=== PATIENT | female | born 1950 | race African-American/Black ===

== ENCOUNTER 2020-01-02 12:56 | Inpatient (IN) | payer MEDICARE, BC ==
[~2020-01-02] VITALS: Ht 167.6 cm; Wt 76.2 kg
--- NOTE | 2020-01-02 13:16 | Emergency Room Report ---
History of Present Illness General Chief Complaint: Multiple Trauma/Fall Source: Patient (Ham Rosa MD) Present Illness HPI Disclaimer: Please note that this report is being documented using [employer] technology. This can lead to erroneous entry secondary to incorrect i nterpretation by the dictating instrument. HPI: 69-year-old female history of brain tumor status post resection 2002 presents for evaluation of falls last night. The patient states she had difficulty with her balance and had 3 separate falls to the floor last night. Does not remember striking her head specifically. She feels that her proprioception is off. Reports some weakness as well. Denies numbness or tingling or unilateral sensory or motor changes. She does not take blood thinners. Denies seizure-like activity. Patient reports midline lower back pain that extends bilaterally out. Denies pain shooting down the legs. 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 No change in sensation. She has been constipated and took laxatives 2 days ago with good results. She believes she may have dehydrated herself. Denies fever, chills, nausea, vomiting. She lives with her adult son. PMH: Non-cancerous brain tumors removed 2002 PSH: Tumor resection brain 2002 Allergies: Penicillin Social Hx: Denies (Ham Rosa MD) Allergies: Coded Allergies: IODINATED CONTRAST MEDIA (Verified Allergy, Severe, 01/02/20) Hives Uncoded Allergies: PENICILLIN (Allergy, Unknown, 01/02/20) COVID-19 Screening Contact w/high risk pt: No Experienced COVID-19 symptoms?: No COVID-19 Testing performed SUBSTATION OPERATOR AUTOMATIC: No (Ham Rosa MD) Patient History Now: No (Ham Rosa MD) Review of Systems All Other Systems: negative except mentioned in HPI (Ham Rosa MD) Physical Exam Vital Signs Date Time Temp Pulse Resp B/P (MAP) Pulse Ox O2 Delivery O2 Flow Rate FiO2 01/02/20 12:52 99.0 76 19 168/85 (112) 98 Room Air General: Awake and alert, no acute distress HEENT: NC/AT. No scalp or face hematomas, lacerations or abrasions. EOMI. PERRLA. Facial expressions are symmetrical. Cardiovascular: RRR. S1 and S2 normal. No murmur appreciated Resp: Normal work of breathing. No cough, wheezing or crackles appreciated Abdomen: Abdomen is soft, nondistended. Nontender Skin: Intact. No abrasions, laceration or rash over the exposed skin MSK: Normal tone and bulk. Moving all extremities. No obvious deformity. Neuro: Awake and alert. Mentating appropriately. Sensation intact over the dermatomes of the lower extremities. No saddle anesthesia. Spine: No step-off, tenderness or deformity in the cervical or thoracic spine. Moderate midline lower lumbar tenderness without palpable deformity. Moderate paraspinal tenderness as well. (Ham Rosa MD) Medical Decision Making Diagnostic Impression: Primary Impression: Fall Additional Impressions: Aortitis Seizure disorder ER Course Is a 69-year-old female presenting for evaluation of multiple falls and feeling off balance. Concern for electrolyte abnormality in the setting of recent laxatives, renal failure, intracranial lesion, back injury. Labs thus far have returned within normal limits. CT head and of the lumbar spine are pending. Will sign out to oncoming provider pending CT results and ultimate disposition. Laboratory Tests Test 01/02/20 14:00 01/02/20 14:40 White Blood Count 6.8 K/UL (4.8-10.8) Red Blood Count 3.24 M/UL (4.20-5.40) L Hemoglobin 11.1 G/DL (12.0-16.0) L Hematocrit 35.0 % (37.0-47.0) L Mean Corpuscular Volume 108 FL (80-99) H Mean Corpuscular Hemoglobin 34.3 PG (27.0-31.0) H Mean Corpuscular Hemoglobin Concent 31.7 G/DL (32.0-36.0) L Red Cell Distribution Width 14.3 % (11.6-14.8) Platelet Count 175 K/UL (150-450) Mean Platelet Volume 6.1 FL (6.5-10.1) L Neutrophils (%) (Auto) 60.9 % (45.0-75.0) Lymphocytes (%) (Auto) 24.0 % (20.0-45.0) Monocytes (%) (Auto) 12.8 % (1.0-10.0) H Eosinophils (%) (Auto) 0.5 % (0.0-3.0) Basophils (%) (Auto) 1.8 % (0.0-2.0) Sodium Level 141 MMOL/L (136-145) Potassium Level 4.0 MMOL/L (3.5-5.1) Chloride Level 105 MMOL/L (98-107) Carbon Dioxide Level 29 MMOL/L (21-32) Anion Gap 8 mmol/L (5-15) Blood Urea Nitrogen 18 mg/dL (7-18) Creatinine 0.8 MG/DL (0.55-1.30) Estimated Glomerular Filtration Rate > 60 mL/min (>60) Glucose Level 88 MG/DL (74-106) Calcium Level 9.5 MG/DL (8.5-10.1) Phosphorus Level 3.6 MG/DL (2.5-4.9) Magnesium Level 1.9 MG/DL (1.8-2.4) Total Bilirubin 0.3 MG/DL (0.2-1.0) Aspartate Amino Transferase (AST) 30 U/L (15-37) Alanine Aminotransferase (ALT) 14 U/L (12-78) Alkaline Phosphatase 56 U/L (46-116) Total Protein 8.0 G/DL (6.4-8.2) Albumin 2.9 G/DL (3.4-5.0) L Globulin 5.1 g/dL Albumin/Globulin Ratio 0.6 (1.0-2.7) L Urine Color Yellow Urine Appearance Slightly cloudy Urine pH 5 (4.5-8.0) Urine Specific [place] 1.020 (1.005-1.035) Urine Protein 1+ (NEGATIVE) H Urine Glucose (UA) Negative (NEGATIVE) Urine Ketones 2+ (NEGATIVE) H Urine Blood Negative (NEGATIVE) Urine Nitrite Negative (NEGATIVE) Urine Bilirubin Negative (NEGATIVE) Urine Urobilinogen 4 MG/DL (0.0-1.0) H Urine Leukocyte Esterase 1+ (NEGATIVE) H Urine RBC 0-2 /HPF (0 - 2) Urine WBC 2-4 /HPF (0 - 2) Urine Squamous Epithelial Cells Few /LPF (NONE/OCC) Urine Bacteria Few /HPF (NONE) (Ham Rosa MD) ER Course Patient was endorsed me by Dr. Rosa. Was noted to have increased lower extremity discomfort and weakness. Has been having increased difficulty with ambulation and more frequent falls. Prior history of brain tumor resection currently taking Depakote as well as Keppra. CT imaging of the abdomen pelvis read by radiology showed possible aortitis see radiology report for full details. Patient was noted to have decreased ability to ambulate compared to her baseline. Labs Test 01/02/20 14:00 01/02/20 14:40 White Blood Count 6.8 K/UL (4.8-10.8) Red Blood Count 3.24 M/UL (4.20-5.40) Hemoglobin 11.1 G/DL (12.0-16.0) Hematocrit 35.0 % (37.0-47.0) Mean Corpuscular Volume 108 FL (80-99) Mean Corpuscular Hemoglobin 34.3 PG (27.0-31.0) Mean Corpuscular Hemoglobin Concent 31.7 G/DL (32.0-36.0) Red Cell Distribution Width 14.3 % (11.6-14.8) Platelet Count 175 K/UL (150-450) Mean Platelet Volume 6.1 FL (6.5-10.1) Neutrophils (%) (Auto) 60.9 % (45.0-75.0) Lymphocytes (%) (Auto) 24.0 % (20.0-45.0) Monocytes (%) (Auto) 12.8 % (1.0-10.0) Eosinophils (%) (Auto) 0.5 % (0.0-3.0) Basophils (%) (Auto) 1.8 % (0.0-2.0) Sodium Level 141 MMOL/L (136-145) Potassium Level 4.0 MMOL/L (3.5-5.1) Chloride Level 105 MMOL/L (98-107) Carbon Dioxide Level 29 MMOL/L (21-32) Anion Gap 8 mmol/L (5-15) Blood Urea Nitrogen 18 mg/dL (7-18) Creatinine 0.8 MG/DL (0.55-1.30) Estimat Glomerular Filtration Rate > 60 mL/min (>60) Glucose Level 88 MG/DL (74-106) Calcium Level 9.5 MG/DL (8.5-10.1) Phosphorus Level 3.6 MG/DL (2.5-4.9) Magnesium Level 1.9 MG/DL (1.8-2.4) Total Bilirubin 0.3 MG/DL (0.2-1.0) Aspartate Amino Transf (AST/SGOT) 30 U/L (15-37) Alanine Aminotransferase (ALT/SGPT) 14 U/L (12-78) Alkaline Phosphatase 56 U/L (46-116) Total Protein 8.0 G/DL (6.4-8.2) Albumin 2.9 G/DL (3.4-5.0) Globulin 5.1 g/dL Albumin/Globulin Ratio 0.6 (1.0-2.7) (Rian Sexton MD) Last Vital Signs Date Time Temp Pulse Resp B/P (MAP) Pulse Ox O2 Delivery O2 Flow Rate FiO2 01/02/20 12:52 99.0 76 19 168/85 (112) 98 Room Air (Ham Rosa MD) Status: unchanged (Rian Sexton MD) Disposition: ADMITTED INPATIENT Condition: Stable Ham Rosa MD Jan 02, 2020 13:15 Rian Sexton MD Jan 02, 2020 14:58
--- NOTE | 2020-01-02 14:35 | Diagnostic Imaging Report ---
EXAM: CT Lumbar Spine Without Intravenous Contrast CLINICAL HISTORY: INJ TECHNIQUE: Axial computed tomography images of the lumbar spine without intravenous contrast. Sagittal and coronal reformatted images were created and reviewed. CTDI is 8.00 mGy and DLP is 223.30 mGy-cm. One or more of the following dose reduction techniques were used: automated exposure control, adjustment of the mA and/or kV according to patient size, use of iterative reconstruction technique. COMPARISON: No relevant prior studies available. FINDINGS: Vertebrae: No evidence of lumbar spine fracture or subluxation. Discs/spinal canal/neural foramina: Moderate degenerative disc space loss at L5-S1. Facet arthrosis, most prominent on the left at L3-L4 and bilaterally at L4-5 and L5-S1. Soft tissues: Unremarkable. Vasculature: Infrarenal IVC filter in place. Hazy para-aortic inflammatory stranding adjacent to the distal abdominal aorta and aortic bifurcation. IMPRESSION: 1. Hazy para-aortic inflammatory stranding adjacent to the distal abdominal aorta and aortic bifurcation. This is nonspecific and is concerning for aortitis or vascular injury. No adjacent fluid collections. 2. No evidence of lumbar spine fracture or subluxation. 3. Moderate degenerative disc space loss at L5-S1. 4. Facet arthrosis, most prominent on the left at L3-L4 and bilaterally at L4-5 and L5-S1. 5. Infrarenal IVC filter in place.
[2020-01-02 14:40] LABS: BASOPHILS % (AUTO) 1.8 % (0.0-2.0); EOSINOPHILS % (AUTO) 0.5 % (0.0-3.0); HEMOGLOBIN 11.1 G/DL (12.0-16.0); MEAN CORPUSCULAR VOLUME 108 FL (80-99); MONOCYTES % (AUTO) 12.8 % (1.0-10.0); NEUTROPHILS % (AUTO) 60.9 % (45.0-75.0); PLATELET COUNT 175 K/UL (150-450); RED BLOOD COUNT 3.24 M/UL (4.20-5.40); RED CELL DISTRIBUTION WIDTH 14.3 % (11.6-14.8); WHITE BLOOD COUNT 6.8 K/UL (4.8-10.8)
--- NOTE | 2020-01-02 14:41 | Diagnostic Imaging Report ---
EXAM: CT Head Without Intravenous Contrast CLINICAL HISTORY: INJ TECHNIQUE: Axial computed tomography images of the head/brain without intravenous contrast. CTDI is 53.40 mGy and DLP is 1045.50 mGy-cm. One or more of the following dose reduction techniques were used: automated exposure control, adjustment of the mA and/or kV according to patient size, use of iterative reconstruction technique. Coronal reformatted images were created and reviewed. COMPARISON: No relevant prior studies available. FINDINGS: Brain: No evidence of acute intracranial hemorrhage. No mass effect or midline shift. Periventricular white matter hypodensities, likely related to chronic small vessel disease changes. Generalized cerebral parenchymal volume loss. Ventricles: Symmetric distention of the lateral and third ventricles, likely compensatory to the cerebral atrophy. Bones/joints: Post surgical changes from bilateral parietal craniotomy. Associated underlying parafalcine and cortical calcifications at the vertex. Soft tissues: Unremarkable. Sinuses: Unremarkable as visualized. Visualized paranasal sinuses are clear. No sinus air-fluid levels. Mastoid air cells: Unremarkable as visualized. No mastoid effusion. IMPRESSION: 1. Post surgical changes from bilateral parietal craniotomy. Associated underlying parafalcine and cortical calcifications at the vertex. 2. No evidence of acute intracranial hemorrhage. No mass effect or midline shift. 3. Periventricular white matter hypodensities, likely related to chronic small vessel disease changes. 4. Generalized cerebral parenchymal volume loss, likely age-related.
[2020-01-02 14:45] VITALS: BP 156/83
[2020-01-02 14:52] LABS: ALANINE AMINOTRANSFERASE 14 U/L (12-78); ALBUMIN 2.9 G/DL (3.4-5.0); ALBUMIN/GLOBULIN RATIO 0.6 (1.0-2.7); ALKALINE PHOSPHATASE 56 U/L (46-116); ANION GAP 8 mmol/L (5-15); ASPARTATE AMINO TRANSFERASE 30 U/L (15-37); BILIRUBIN,TOTAL 0.3 MG/DL (0.2-1.0); BLOOD UREA NITROGEN 18 mg/dL (7-18); CALCIUM 9.5 MG/DL (8.5-10.1); CARBON DIOXIDE 29 MMOL/L (21-32); CHLORIDE 105 MMOL/L (98-107); CREATININE 0.8 MG/DL (0.55-1.30); PHOSPHORUS 3.6 MG/DL (2.5-4.9); SODIUM 141 MMOL/L (136-145)
[2020-01-02 15:05] LABS: APPEARANCE,URINE SLIGHTLY CLOUDY; BILIRUBIN, URINE NEGATIVE (NEGATIVE); GLUCOSE, URINE (UA) NEGATIVE (NEGATIVE); KETONES,URINE 2+ (NEGATIVE); LEUKOCYTE ESTERASE ,URINE 1+ (NEGATIVE); NITRITE,URINE NEGATIVE (NEGATIVE); PH,URINE 5 (4.5-8.0); PROTEIN,URINE 1+ (NEGATIVE); UROBILINOGEN,URINE 4 MG/DL (0.0-1.0)
[2020-01-02] MEDS ORDERED: VITAMIN B-1100 M2 PO (15:36)
[2020-01-02] MEDS ORDERED: ACETAMINOPHEN500 M5 ORAL (15:36)
[2020-01-02] MEDS ORDERED: FOLIC ACID0.4 MG ORAL (15:36)
[2020-01-02] MEDS ORDERED: LEVETIRACETAM1000 MG ORAL (15:36)
[2020-01-02] MEDS ORDERED: AMITIZA8 MCG ORAL (15:36)
[2020-01-02] MEDS ORDERED: DEPAKOTE500 MG PO (15:36)
[2020-01-02 15:46] LABS: COLOR,URINE YELLOW
[2020-01-02 15:47] VITALS: BP 149/70
[2020-01-02] MEDS ORDERED: Miralax 17gm pkt ORAL PRN (18:45)
[2020-01-02] MEDS ORDERED: Zolpidem 5mg tab ORAL PRN (18:45)
[2020-01-02] MEDS: Depakote 500mg tab ORAL SCH (21:11)
[2020-01-03] VITALS (7 sets, daily range): BP systolic 135–159; BP diastolic 66–80
[2020-01-03] MEDS ORDERED: ROBAXIN-500MG ORAL (01:03)
[2020-01-03] MEDS: Methocarbamol 500mg tab ORAL PRN ×3 (06:47→20:50)
[2020-01-03 06:52] LABS: BASOPHILS % (AUTO) 1.8 % (0.0-2.0); EOSINOPHILS % (AUTO) 0.5 % (0.0-3.0); HEMATOCRIT 33.8 % (37.0-47.0); HEMOGLOBIN 10.5 G/DL (12.0-16.0); LYMPHOCYTES % (AUTO) 22.3 % (20.0-45.0); MEAN CORPUSCULAR VOLUME 109 FL (80-99); MONOCYTES % (AUTO) 9.3 % (1.0-10.0); NEUTROPHILS % (AUTO) 66.1 % (45.0-75.0); PLATELET COUNT 173 K/UL (150-450); RED BLOOD COUNT 3.09 M/UL (4.20-5.40); RED CELL DISTRIBUTION WIDTH 14.2 % (11.6-14.8); WHITE BLOOD COUNT 6.2 K/UL (4.8-10.8)
[2020-01-03 07:54] LABS: ALANINE AMINOTRANSFERASE 13 U/L (12-78); ALBUMIN 2.7 G/DL (3.4-5.0); ALBUMIN/GLOBULIN RATIO 0.6 (1.0-2.7); ALKALINE PHOSPHATASE 58 U/L (46-116); ANION GAP 9 mmol/L (5-15); ASPARTATE AMINO TRANSFERASE 23 U/L (15-37); BILIRUBIN,TOTAL 0.2 MG/DL (0.2-1.0); BLOOD UREA NITROGEN 14 mg/dL (7-18); CARBON DIOXIDE 27 MMOL/L (21-32); CHLORIDE 105 MMOL/L (98-107); CHOLESTEROL 136 MG/DL (< 200); CREATININE 0.9 MG/DL (0.55-1.30); HDL CHOLESTEROL 43 MG/DL (40-60); POTASSIUM 3.6 MMOL/L (3.5-5.1); SODIUM 141 MMOL/L (136-145); TRIGLYCERIDES 60 MG/DL (30-150)
[2020-01-03] MEDS: Depakote 500mg tab ORAL SCH ×2 (08:30→20:42)
--- NOTE | 2020-01-03 13:08 | History & Physical ---
History and Physical History & Physicial Hector Magana MD Jan 03, 2020 13:07
--- NOTE | 2020-01-03 14:04 | Consultation ---
History of Present Illness General Date patient seen: Jan 06, 2020 Chief Complaint: Lower Back Pain or Injury Present Illness HPI 69-year-old female with history of brain tumor status post resection 2002 presents for evaluation of falls last night, difficulty with her balance, some weakness as well. Denies numbness or tingling or unilateral sensory or motor changes. Denies seizure-like activity. Patient reports midline lower back pain that extends bilaterally out. 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 No change in sensation. She is admitted for further management. Allergies: Coded Allergies: IODINATED CONTRAST MEDIA (Verified Allergy, Severe, 01/02/20) Hives Uncoded Allergies: PENICILLIN (Allergy, Unknown, 01/02/20) Medication History Scheduled Divalproex Sodium (Depakote), 500 MG PO BID, (Reported) Folic Acid (Folic Acid), 400 MCG ORAL BID, (Reported) Levetiracetam (Levetiracetam), 1,000 MG ORAL TWICE A DAY, (Reported) Lubiprostone (Amitiza), 8 MCG ORAL EVERY 12 HOURS, (Reported) Methocarbamol* (Robaxin-500*), 500 MG ORAL TID, (Reported) Thiamine Mononitrate (Vitamin B-1), 100 MG PO DAILY, (Reported) Scheduled PRN Acetaminophen (Acetaminophen), 500 MG ORAL TID PRN for For Pain, (Reported) Polyethylene Glycol 3350* (Miralax*), 17 GM ORAL DAILY PRN for Constipation, (Reported) Psyllium Husk/Aspartame (Metamucil Powder), 174 GM PO for Constipation, (Reported) Patient History Healthcare decision maker Resuscitation status Advanced Directive on File Past Medical/Surgical History Past Medical/Surgical History: (1) Neuropathy of left lower extremity (2) Brain tumor (3) Seizure disorder Review of Systems All Other Systems: negative except mentioned in HPI Physical Exam General Appearance: WD/WN Lines, tubes and drains: peripheral HEENT: normocephalic, atraumatic Neck: non-tender, normal alignment Respiratory/Chest: chest wall non-tender, lungs clear Breasts: no masses Cardiovascular/Chest: normal peripheral pulses, normal rate Genitourinary/Rectal: normal genital exam, heme negative stool Skin Exam: normal pigmentation 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 Last 24 Hour Vital Signs Date Time Temp Pulse Resp B/P (MAP) Pulse Ox O2 Delivery O2 Flow Rate FiO2 01/03/20 08:00 98.8 73 18 150/70 (96) 98 01/03/20 04:00 98.5 83 18 153/75 (101) 98 01/03/20 00:00 98.1 77 18 159/66 (97) 98 01/02/20 21:00 Room Air 01/02/20 18:06 98.9 70 18 149/70 98 Room Air 01/02/20 15:47 98.9 70 18 149/70 98 Room Air 01/02/20 14:45 99.0 78 19 156/83 98 Room Air Intake and Output 01/02/20 01/03/20 19:00 07:00 Intake Total 500 ml Balance 500 ml Intake Oral 500 ml # Voids 1 3 # Bowel Movements 1 Laboratory Tests Test 01/02/20 14:40 01/03/20 05:23 Urine Color Yellow Urine Appearance Slightly cloudy Urine pH 5 (4.5-8.0) Urine Specific [place] 1.020 (1.005-1.035) Urine Protein 1+ (NEGATIVE) H Urine Glucose (UA) Negative (NEGATIVE) Urine Ketones 2+ (NEGATIVE) H Urine Blood Negative (NEGATIVE) Urine Nitrite Negative (NEGATIVE) Urine Bilirubin Negative (NEGATIVE) Urine Urobilinogen 4 MG/DL (0.0-1.0) H Urine Leukocyte Esterase 1+ (NEGATIVE) H Urine RBC 0-2 /HPF (0 - 2) Urine WBC 2-4 /HPF (0 - 2) Urine Squamous Epithelial Cells Few /LPF (NONE/OCC) Urine Bacteria Few /HPF (NONE) White Blood Count 6.2 K/UL (4.8-10.8) Red Blood Count 3.09 M/UL (4.20-5.40) L Hemoglobin 10.5 G/DL (12.0-16.0) L Hematocrit 33.8 % (37.0-47.0) L Mean Corpuscular Volume 109 FL (80-99) H Mean Corpuscular Hemoglobin 33.9 PG (27.0-31.0) H Mean Corpuscular Hemoglobin Concent 31.0 G/DL (32.0-36.0) L Red Cell Distribution Width 14.2 % (11.6-14.8) Platelet Count 173 K/UL (150-450) Mean Platelet Volume 6.1 FL (6.5-10.1) L Neutrophils (%) (Auto) 66.1 % (45.0-75.0) Lymphocytes (%) (Auto) 22.3 % (20.0-45.0) Monocytes (%) (Auto) 9.3 % (1.0-10.0) Eosinophils (%) (Auto) 0.5 % (0.0-3.0) Basophils (%) (Auto) 1.8 % (0.0-2.0) Sodium Level 141 MMOL/L (136-145) Potassium Level 3.6 MMOL/L (3.5-5.1) Chloride Level 105 MMOL/L (98-107) Carbon Dioxide Level 27 MMOL/L (21-32) Anion Gap 9 mmol/L (5-15) Blood Urea Nitrogen 14 mg/dL (7-18) Creatinine 0.9 MG/DL (0.55-1.30) Estimat Glomerular Filtration Rate > 60 mL/min (>60) Glucose Level 119 MG/DL (74-106) H Calcium Level 9.0 MG/DL (8.5-10.1) Total Bilirubin 0.2 MG/DL (0.2-1.0) Aspartate Amino Transf (AST/SGOT) 23 U/L (15-37) Alanine Aminotransferase (ALT/SGPT) 13 U/L (12-78) Alkaline Phosphatase 58 U/L (46-116) Total Protein 7.5 G/DL (6.4-8.2) Albumin 2.7 G/DL (3.4-5.0) L Globulin 4.8 g/dL Albumin/Globulin Ratio 0.6 (1.0-2.7) L Triglycerides Level 60 MG/DL (30-150) Cholesterol Level 136 MG/DL (< 200) LDL Cholesterol 69 mg/dL (<100) HDL Cholesterol 43 MG/DL (40-60) Cholesterol/HDL Ratio 3.2 (3.3-4.4) L Thyroid Stimulating Hormone (TSH) 2.210 uiU/mL (0.358-3.740) Height (Feet): 5 Height (Inches): 6.00 Weight (Pounds): 168 Medications Current Medications Medications (Trade) Dose Ordered Sig/Stone Route PRN Reason Start Time Stop Time Status Last Admin Dose Admin Acetaminophen (Tylenol) 650 mg Q4H PRN ORAL Temp >100.5 01/02/20 18:45 02/01/20 18:44 Dextrose (Dextrose 50%) 25 ml Q30MIN PRN IV Hypoglycemia 01/02/20 18:45 04/01/20 18:44 Dextrose (Dextrose 50%) 50 ml Q30MIN PRN IV Hypoglycemia 01/02/20 18:45 04/01/20 18:44 Divalproex Sodium (Depakote) 500 mg Q12HR ORAL 01/02/20 21:00 02/01/20 20:59 01/03/20 08:30 Levetiracetam (Keppra) 1,000 mg Q12HR ORAL 01/02/20 21:00 02/01/20 20:59 01/03/20 08:30 Methocarbamol (Robaxin) 500 mg TID PRN ORAL back pain 01/03/20 06:45 02/02/20 06:44 01/03/20 13:48 Ondansetron HCl (Zofran) 4 mg Q6H PRN IVP Nausea & Vomiting 01/02/20 18:45 02/01/20 18:44 Polyethylene Glycol (Miralax) 17 gm HSPRN PRN ORAL Constipation 01/02/20 18:45 02/01/20 18:44 Zolpidem Tartrate (Ambien) 5 mg HSPRN PRN ORAL Insomnia 01/02/20 18:45 01/09/20 18:44 Assessment/Plan Problem List: (1) Frequent falls ICD Codes: R29.6 - Repeated falls SNOMED: 203813010 (2) Neuropathy of left lower extremity ICD Codes: G57.92 - Unspecified mononeuropathy of left lower limb SNOMED: 123595129 (3) Seizure disorder ICD Codes: G40.909 - Epilepsy, unspecified, not intractable, without status epilepticus SNOMED: 911363455 (4) Brain tumor ICD Codes: D49.6 - Neoplasm of unspecified behavior of brain SNOMED: 880800489 Assessment/Plan: fall precaution PT eval and Rx DVT prophylaxis seizure precautions, continue Keppra and Depakote monitor H&H with goal to keep hemoglobin above 7 CT of the head with postsurgical changes ; no evidence of acute ICH, no mass- effect or midline shift; generalized cerebral parenchymal volume loss. likely age-related EEG pending cardio eval ECHO Carotid duplex supportive care Donnell Adams MD Jan 03, 2020 14:03
--- NOTE | 2020-01-03 23:00 | History and Physical Report ---
DATE OF ADMISSION: 01/02/2020 CHIEF COMPLAINT: Unsteady gait, recurrent fall. HISTORY OF PRESENT ILLNESS: This is a 69-year-old very delightful female with past medical history significant for lower back pain as well as benign brain mass, status post resection in 2002. 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 She presented to the emergency department complaining about recurrent fall and unsteady gait. The patient had difficulty with her balance, has been having 3 episodes of fall to the floor last night. The patient does not remember striking her head, specifically she feels that her balance is off. She reports some weakness as well. Denies any numbness or tingling. Denies any double vision. Denies any bowel or urine incontinence. She is not taking any blood thinner. She denies any fever, chills, nausea, vomiting, or diarrhea. She has been keeping herself hydrated and she lives with her adult son. Shortly after initial evaluation in the emergency department, the patient was admitted to the hospital with recurrent falls with unsteady gait. PAST MEDICAL HISTORY: Significant for benign brain tumor called Rosai-Eran, status post resection in 2002. MEDICATIONS AT HOME: Please refer to medication reconciliation. ALLERGIES: Iodine contrast media and penicillin with rash. SOCIAL HISTORY: Denies any smoking, alcohol, or drugs. FAMILY HISTORY: Noncontributory. REVIEW OF SYSTEMS: Mostly as above. Denies any dysuria, frequency, hematuria. Denies any hemoptysis or hematochezia. Denies any bright red blood per rectum. Complained of unsteady gait and lower extremity weakness. Complained about balance problem. PHYSICAL EXAMINATION: VITAL SIGNS: On admission, temperature 99, pulse of 76, respirations 19, blood pressure 168/85. GENERAL: The patient is awake, responsive, no acute distress. HEAD AND NECK: Pupils equal and reactive to light. Extraocular movements intact. Neck was supple. No JVD. LUNGS: Good air entry. No wheezing or rales. HEART: S1, S2. Regular rhythm. No murmur or gallop. ABDOMEN: Soft, nondistended, nontender, positive bowel sounds. EXTREMITIES: No cyanosis, clubbing, or edema. NEUROLOGIC: souvenir assembler II through XII grossly intact. Motor is 5/5 in all extremities. Gait was not assessed due to the patient's status. RECTAL: Refused and deferred. GENITOURINARY: Refused and deferred. LABORATORY DATA: On admission from the emergency department, WBC of 6.8, hemoglobin 11, hematocrit 35 platelet is 175. Sodium 141, potassium 4.0, chloride 105, bicarb 29, BUN 18, creatinine 0.8. Liver function essentially unremarkable. Cholesterol is 136. UA has +1 protein, +2 ketones, 4 urobilinogen, and +1 leukocytes. The patient had a CT scan of the head and spine that showed postsurgical changes from the bilateral parietal craniotomy, associated with underlying parafalcine and cortical calcification at the vertex. No evidence of acute intracranial hemorrhage or mass effect or midline shift. Periventricular white matter hypodensity, likely related to chronic small vessel, generalized cerebral parenchymal volume loss. CT of the lumbar spine shows that she has para-aortic inflammatory stranding adjacent to the distal abdominal aorta and aortic bifurcation disease, nonspecified, concerning of aortitis or vascular injury. No adjacent fluid collection. No evidence of the lumbar spine fracture or subluxation. Moderate degenerative disc space loss at the level of L5 and S1 and facet arthropathy, most prominent on the left at the level of L3-L4 and bilateral L4-L5 and L5-S1, infrarenal IVC filter in place. ASSESSMENT: 1. Unsteady gait with recurrent falls. 2. History of DVT, status post IVC filter. 3. Anemia. 4. History of brain tumor, status post resection. PLAN: Admit the patient to the medical floor. We will follow up laboratory. PT/OT evaluation. Follow up with culture. At this time, we will hold off on antibiotic therapy. Follow up with consultation. Code status is full code. DVT prophylaxis is heparin subcu. Hector Magana M.D. DR: FINN JOB#: [id number] CC:
[2020-01-04 04:00] VITALS: BP 151/73
[2020-01-04 08:00] VITALS: BP 158/81
[2020-01-04] MEDS: HYDROcodone/Acetamin 5/325 tab ORAL PRN (08:36)
[2020-01-04] MEDS: Depakote 500mg tab ORAL SCH ×2 (10:17→20:26)
--- NOTE | 2020-01-04 11:01 | Pulmonology Progress Note ---
Subjective Allergies: Coded Allergies: IODINATED CONTRAST MEDIA (Verified Allergy, Severe, 01/02/20) Hives Uncoded Allergies: PENICILLIN (Allergy, Unknown, 01/02/20) Subjective reports recurrent falls and being unsteady on her feet remains afebrile, no leukocytosis CT head and CT L spine noted Objective Last 24 Hour Vital Signs Date Time Temp Pulse Resp B/P (MAP) Pulse Ox O2 Delivery O2 Flow Rate FiO2 01/04/20 09:00 Room Air 01/04/20 08:00 97.2 73 18 158/81 (106) 100 01/04/20 04:00 97.9 81 18 151/73 (99) 100 01/03/20 23:21 98.8 77 18 152/73 (99) 98 01/03/20 21:00 Room Air 01/03/20 20:00 98.3 79 18 153/66 (95) 97 01/03/20 16:00 98.6 89 17 135/80 (98) 98 01/03/20 12:00 97.9 67 15 142/80 (100) 98 Intake and Output 01/03/20 01/04/20 19:00 07:00 Intake Total 500 ml 300 ml Balance 500 ml 300 ml Intake Oral 300 ml Other 500 ml # Voids 3 General Appearance: WD/WN, no acute distress HEENT: normocephalic, atraumatic, anicteric, mucous membranes moist Respiratory: lungs clear, no respiratory distress, no accessory muscle use Cardiovascular: normal peripheral pulses, normal rate Abdomen: normal bowel sounds, soft, non tender Extremities: no edema Neurologic: abnormal gait - unsteady gait , alert, oriented x 3, responsive Musculoskeletal: normal muscle bulk Current Medications Medications (Trade) Dose Ordered Sig/Stone Route PRN Reason Start Time Stop Time Status Last Admin Dose Admin Acetaminophen (Tylenol) 650 mg Q4H PRN ORAL Temp >100.5 01/02/20 18:45 02/01/20 18:44 Acetaminophen/ Hydrocodone Bitart ([place]ra 5/325) 1 tab Q6H PRN ORAL For Pain 01/03/20 14:15 01/10/20 14:14 01/04/20 08:36 Dextrose (Dextrose 50%) 25 ml Q30MIN PRN IV Hypoglycemia 01/02/20 18:45 04/01/20 18:44 Dextrose (Dextrose 50%) 50 ml Q30MIN PRN IV Hypoglycemia 01/02/20 18:45 04/01/20 18:44 Divalproex Sodium (Depakote) 500 mg Q12HR ORAL 01/02/20 21:00 02/01/20 20:59 01/04/20 10:17 Levetiracetam (Keppra) 1,000 mg Q12HR ORAL 01/02/20 21:00 02/01/20 20:59 01/04/20 10:17 Methocarbamol (Robaxin) 500 mg TID PRN ORAL back pain 01/03/20 06:45 02/02/20 06:44 01/03/20 20:50 Ondansetron HCl (Zofran) 4 mg Q6H PRN IVP Nausea & Vomiting 01/02/20 18:45 02/01/20 18:44 Polyethylene Glycol (Miralax) 17 gm HSPRN PRN ORAL Constipation 01/02/20 18:45 02/01/20 18:44 Zolpidem Tartrate (Ambien) 5 mg HSPRN PRN ORAL Insomnia 01/02/20 18:45 01/09/20 18:44 Assessment/Plan Assessment/Plan ASSESSMENT 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 likely age-related neuro eval pending CT of L spine noted : infrarenal IVC filter in place ; no evidence of lumbar spine fracture or subluxation; moderate degenerative disc disease with facet arthrosis; hazy para-aortic inflammatory stranding concerning for aortitis or vascular injury cardio eval pending monitor HH with goal to keep Hgb > 7 supportive care case discussed and evaluated by supervising physician Caty Dozier NP Jan 04, 2020 11:01
[2020-01-04 12:00] VITALS: BP 152/72
[2020-01-04 16:00] VITALS: BP 134/68
--- NOTE | 2020-01-04 17:05 | Internal Med Progress Note ---
Subjective Date of Service: Jan 04, 2020 Physician Name Marky Quinones Attending Physician Hector Magana MD Current Medications Medications (Trade) Dose Ordered Sig/Stone Route PRN Reason Start Time Stop Time Status Last Admin Dose Admin Acetaminophen (Tylenol) 650 mg Q4H PRN ORAL Temp >100.5 01/02/20 18:45 02/01/20 18:44 Acetaminophen/ Hydrocodone Bitart ([place] 5/325) 1 tab Q6H PRN ORAL For Pain 01/03/20 14:15 01/10/20 14:14 01/04/20 08:36 Dextrose (Dextrose 50%) 25 ml Q30MIN PRN IV Hypoglycemia 01/02/20 18:45 04/01/20 18:44 Dextrose (Dextrose 50%) 50 ml Q30MIN PRN IV Hypoglycemia 01/02/20 18:45 04/01/20 18:44 Divalproex Sodium (Depakote) 500 mg Q12HR ORAL 01/02/20 21:00 02/01/20 20:59 01/04/20 10:17 Levetiracetam (Keppra) 1,000 mg Q12HR ORAL 01/02/20 21:00 02/01/20 20:59 01/04/20 10:17 Methocarbamol (Robaxin) 500 mg TID PRN ORAL back pain 01/03/20 06:45 02/02/20 06:44 01/03/20 20:50 Ondansetron HCl (Zofran) 4 mg Q6H PRN IVP Nausea & Vomiting 01/02/20 18:45 02/01/20 18:44 Polyethylene Glycol (Miralax) 17 gm HSPRN PRN ORAL Constipation 01/02/20 18:45 02/01/20 18:44 Zolpidem Tartrate (Ambien) 5 mg HSPRN PRN ORAL Insomnia 01/02/20 18:45 01/09/20 18:44 Allergies: Coded Allergies: IODINATED CONTRAST MEDIA (Verified Allergy, Severe, 01/02/20) Hives Uncoded Allergies: PENICILLIN (Allergy, Unknown, 01/02/20) ROS Limited/Unobtainable: No Constitutional: Reports: no symptoms HEENT: Reports: no symptoms Cardiovascular: Reports: no symptoms Respiratory: Reports: no symptoms Gastrointestinal/Abdominal: Reports: no symptoms Genitourinary: Reports: no symptoms Neurologic/Psychiatric: Reports: no symptoms Subjective 76 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 Cover for Int med-Dr Hou Objective Last Vital Signs Date Time Temp Pulse Resp B/P (MAP) Pulse Ox O2 Delivery O2 Flow Rate FiO2 01/04/20 16:00 98.6 74 16 134/68 (90) 98 01/04/20 09:00 Room Air Intake and Output 01/03/20 01/04/20 19:00 07:00 Intake Total 500 ml 300 ml Balance 500 ml 300 ml Intake Oral 300 ml Other 500 ml # Voids 3 Objective PHYSICAL EXAMINATION: GENERAL: The patient is awake, responsive, no acute distress. HEAD AND NECK: Pupils equal and reactive to light. Extraocular movements intact. Neck was supple. No JVD. LUNGS: Good air entry. No wheezing or rales. HEART: S1, S2. Regular rhythm. No murmur or gallop. ABDOMEN: Soft, nondistended, nontender, positive bowel sounds. EXTREMITIES: No cyanosis, clubbing, or edema. NEUROLOGIC: picture hanger II through XII grossly intact. Motor is 5/5 in all extremities. Gait was not assessed due to the patient's status. RECTAL: Refused and deferred. GENITOURINARY: Refused and deferred. Assessment/Plan Assessment/Plan ASSESSMENT: 1. Unsteady gait with recurrent falls. 2. History of DVT, status post IVC filter. 3. Anemia. 4. History of brain tumor, status post resection. PLAN: Admit the patient to the medical floor. We will follow up laboratory. PT/OT evaluation. Follow up with culture. At this time, we will hold off on antibiotic therapy. Follow up with Dr. Adams - pulmonary consultation. Code status is full code. DVT prophylaxis is heparin subcu. Await neurology consult-Marky Pimentel MD Jan 04, 2020 17:05
[2020-01-04 20:00] VITALS: BP 143/73
--- NOTE | 2020-01-04 21:36 | Neurology Progress Note ---
Interim History Interim History ROS Limited/Unobtainable: No Interim History 69 year oldfemalewithh/oRosai Eran diseases/p craniotomy and tumor resection in 2002 at [place] w radiation, chemotherapy, seizure disorder, chronic gait instability with falls who presents w worsening gait instability and AMS. Pt has hx of multiple falls, seen by myself at [facility] multiple times due to this. Unclear if she LOC this time. She reports more falling than ever in past 2-3 months, difficulty w balance, approx fell 5-6 times in past few months. Feels like her legs give out even while using FWW, RLE weaker >LLE. Fine resting tremors and bradykinesia noted to BUE. Objective Physical Exam Last Vital Signs Date Time Temp Pulse Resp B/P (MAP) Pulse Ox O2 Delivery O2 Flow Rate FiO2 01/04/20 20:02 Room Air 01/04/20 16:00 98.6 74 16 134/68 (90) 98 Neurologic Exam Mental Status: awake, alert Objective she is confused and tangential bradykinetic but symmetric mild rigidity Impression/Recommendations Problems: (1) Aortitis (2) Seizure disorder (3) Fall (4) Brain tumor Diagnostic Impression Diagnosis Generalized weakness Gait instability Falls frequently Rosai-Eran disease (HCC) Seizure disorder (HCC) 1. Frequent falls since December 2018 with rigidity and tremors - likely parkinsonism. - MRI cervical / T / L wo significant disease - waiting final read - OT/PT 2. history brain tumor status post resection and chemotherapy, radiation therapy 3. Seizure disorder, secondary to above Plan: MRI brain w/wo EEG Cont AEDs for now dr pulliam to follow Sohail Tran MD Jan 04, 2020 21:36
--- NOTE | 2020-01-04 21:44 | Cardiac Electrophysiology PN ---
Subjective Subjective [id number] Objective Last 24 Hour Vital Signs Date Time Temp Pulse Resp B/P (MAP) Pulse Ox O2 Delivery O2 Flow Rate FiO2 01/04/20 20:02 Room Air 01/04/20 16:00 98.6 74 16 134/68 (90) 98 01/04/20 12:00 97.1 82 16 152/72 (98) 100 01/04/20 09:00 Room Air 01/04/20 08:00 97.2 73 18 158/81 (106) 100 01/04/20 04:00 97.9 81 18 151/73 (99) 100 01/03/20 23:21 98.8 77 18 152/73 (99) 98 Intake and Output 01/03/20 01/04/20 19:00 07:00 Intake Total 500 ml 300 ml Balance 500 ml 300 ml Intake Oral 300 ml Other 500 ml # Voids 3 Samson Torrez MD Jan 04, 2020 21:44
[2020-01-04] MEDS ORDERED: METAMUCIL POWD174 GM PO (22:13)
[2020-01-04] MEDS ORDERED: MIRALAX17 G2 ORAL (22:13)
--- NOTE | 2020-01-04 23:00 | Consultation ---
DATE OF CONSULTATION: 01/04/2020 CARDIOLOGY CONSULTATION CONSULTING PHYSICIAN: Samson Torrez M.D. REFERRING PHYSICIAN: Hector Magana M.D. REASON FOR CONSULTATION: Recurrent falls. 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 The patient presented to the emergency room with unsteady gait and 3 episodes of fall to the floor. The patient does not remember striking her head, but she was feeling off balance. The patient has not had any nausea, vomiting, or diaphoresis. The patient was admitted and a Cardiology consultation was obtained for further evaluation. REVIEW OF SYSTEMS: Negative other than what is mentioned in the history of present illness. PAST MEDICAL HISTORY: As mentioned above. MEDICATIONS: Per reconciliation. ALLERGIES: She is allergic to contrast and penicillin that causes rash. FAMILY HISTORY: Noncontributory. FAMILY HISTORY: Noncontributory. SOCIAL HISTORY: She lives at home. Does smoke or drink alcohol or use drugs. PHYSICAL EXAMINATION: VITAL SIGNS: Show blood pressure of 130/70, pulse is 70, respirations 18, and she is afebrile. HEAD AND NECK: Showed no JVD. LUNGS: Clear. CARDIOVASCULAR: Shows regular S1 and S2 with no gallop or murmur. ABDOMEN: Soft. EXTREMITIES: No pitting edema. LABORATORY AND DIAGNOSTIC DATA: Labs show white count of 6.2, hemoglobin 10.5, hematocrit 33, and platelet count is 173,000. Sodium 141, potassium 3.6, BUN of 14, creatinine 0.9, and glucose of 119. ASSESSMENT/PLAN: 1. Status post recurrent falls x3 in the patient with history of brain tumor. A CT of the brain showed postsurgical changes with bilateral pressure craniectomy with no evidence for intracranial hemorrhage or mass effect or midline shift. We will completely rule out AL protocol. Get an echocardiogram and carotid duplex for further evaluation. 2. History of DVT status post IVC filter. 3. History of Rosai-Eran brain tumor status post resection. 4. Anemia. Thank you very much for allowing me to participate in the care of this patient. Please do not hesitate to contact me for any questions regarding my evaluation. Samson Torrez M.D. DR: JOSE L JOB#: [id number] CC:
[2020-01-05] MEDS: HYDROcodone/Acetamin 5/325 tab ORAL PRN (02:50)
[2020-01-05 04:00] VITALS: BP 122/73
[2020-01-05 06:59] LABS: BASOPHILS % (AUTO) 2.3 % (0.0-2.0); EOSINOPHILS % (AUTO) 0.7 % (0.0-3.0); HEMATOCRIT 32.9 % (37.0-47.0); HEMOGLOBIN 10.2 G/DL (12.0-16.0); LYMPHOCYTES % (AUTO) 29.4 % (20.0-45.0); MEAN CORPUSCULAR VOLUME 110 FL (80-99); NEUTROPHILS % (AUTO) 58.6 % (45.0-75.0); PLATELET COUNT 194 K/UL (150-450); RED CELL DISTRIBUTION WIDTH 13.5 % (11.6-14.8); WHITE BLOOD COUNT 5.8 K/UL (4.8-10.8)
[2020-01-05 07:08] LABS: ANION GAP 8 mmol/L (5-15); BLOOD UREA NITROGEN 15 mg/dL (7-18); CARBON DIOXIDE 28 MMOL/L (21-32); CHLORIDE 106 MMOL/L (98-107); CREATININE 0.7 MG/DL (0.55-1.30); POTASSIUM 4.1 MMOL/L (3.5-5.1); SODIUM 142 MMOL/L (136-145)
[2020-01-05 08:00] VITALS: BP 129/79
[2020-01-05] MEDS: Depakote 500mg tab ORAL SCH ×2 (08:22→20:55)
--- NOTE | 2020-01-05 10:19 | Pulmonology Progress Note ---
Subjective ROS Limited/Unobtainable: No Allergies: Coded Allergies: IODINATED CONTRAST MEDIA (Verified Allergy, Severe, 01/02/20) Hives Uncoded Allergies: PENICILLIN (Allergy, Unknown, 01/02/20) Subjective reports recurrent falls and being unsteady on her feet remains afebrile, no leukocytosis denies CP, dizziness, syncope, SOB seen by cardio and neuro PT eval done Objective Last 24 Hour Vital Signs Date Time Temp Pulse Resp B/P (MAP) Pulse Ox O2 Delivery O2 Flow Rate FiO2 01/05/20 09:00 Room Air 01/05/20 08:00 98.1 88 18 129/79 (96) 93 01/05/20 04:00 98.2 81 18 122/73 (89) 97 01/04/20 20:02 Room Air 01/04/20 20:00 97.9 80 18 143/73 (96) 96 01/04/20 16:00 98.6 74 16 134/68 (90) 98 01/04/20 12:00 97.1 82 16 152/72 (98) 100 Intake and Output 01/04/20 01/05/20 19:00 07:00 Intake Total 840 ml 480 ml Output Total 800 ml Balance 40 ml 480 ml Intake Oral 840 ml 480 ml Output Urine Total 800 ml # Voids 3 General Appearance: WD/WN, no acute distress HEENT: normocephalic, atraumatic, anicteric, mucous membranes moist Respiratory: lungs clear, no respiratory distress, no accessory muscle use Cardiovascular: normal peripheral pulses, normal rate Abdomen: normal bowel sounds, soft, non tender Extremities: no edema Neurologic: abnormal gait - unsteady gait , alert, oriented x 3, responsive Musculoskeletal: normal muscle bulk Laboratory Tests 01/05/20 06:00: White Blood Count 5.8, Red Blood Count 3.00L, Hemoglobin 10.2L, Hematocrit 32.9L , Mean Corpuscular Volume 110H, Mean Corpuscular Hemoglobin 33.8H, Mean Corpuscular Hemoglobin Concent 30.9L, Red Cell Distribution Width 13.5, Platelet Count 194, Mean Platelet Volume 6.6, Neutrophils (%) (Auto) 58.6, Lymphocytes (%) (Auto) 29.4, Monocytes (%) (Auto) 9.0, Eosinophils (%) (Auto) 0.7, Basophils (%) (Auto) 2.3H, Sodium Level 142, Potassium Level 4.1, Chloride Level 106, Carbon Dioxide Level 28, Anion Gap 8, Blood Urea Nitrogen 15, Creatinine 0.7, Estimat Glomerular Filtration Rate > 60, Glucose Level 112H, Calcium Level 9.0, Troponin I 0.007 Current Medications Medications (Trade) Dose Ordered Sig/Stone Route PRN Reason Start Time Stop Time Status Last Admin Dose Admin Acetaminophen (Tylenol) 650 mg Q4H PRN ORAL Temp >100.5 01/02/20 18:45 02/01/20 18:44 Acetaminophen/ Hydrocodone Bitart (Sandy 5/325) 1 tab Q6H PRN ORAL For Pain 01/03/20 14:15 01/10/20 14:14 01/05/20 02:50 Dextrose (Dextrose 50%) 25 ml Q30MIN PRN IV Hypoglycemia 01/02/20 18:45 04/01/20 18:44 Dextrose (Dextrose 50%) 50 ml Q30MIN PRN IV Hypoglycemia 01/02/20 18:45 04/01/20 18:44 Divalproex Sodium (Depakote) 500 mg Q12HR ORAL 01/02/20 21:00 02/01/20 20:59 01/05/20 08:22 Levetiracetam (Keppra) 1,000 mg Q12HR ORAL 01/02/20 21:00 02/01/20 20:59 01/05/20 08:22 Methocarbamol (Robaxin) 500 mg TID PRN ORAL back pain 01/03/20 06:45 02/02/20 06:44 01/03/20 20:50 Ondansetron HCl (Zofran) 4 mg Q6H PRN IVP Nausea & Vomiting 01/02/20 18:45 02/01/20 18:44 Polyethylene Glycol (Miralax) 17 gm HSPRN PRN ORAL Constipation 01/02/20 18:45 02/01/20 18:44 Zolpidem Tartrate (Ambien) 5 mg HSPRN PRN ORAL Insomnia 01/02/20 18:45 01/09/20 18:44 Assessment/Plan Assessment/Plan ASSESSMENT Recurrent falls ? possible aortitis History of DVT ; status post IVC filter History of benign brain tumor , status post resection Anemia Seizure disorder PLAN OF CARE MS floor fall precaution PT eval and Rx DVT prophylaxis seizure precautions, continue Keppra and Depakote monitor H&H with goal to keep hemoglobin above 7 CT of the head with postsurgical changes ; no evidence of acute ICH, no mass- effect or midline shift; generalized cerebral parenchymal volume loss. likely age-related neuro eval appreciated EEG pending CT of L spine noted : infrarenal IVC filter in place ; no evidence of lumbar spine fracture or subluxation; moderate degenerative disc disease with facet arthrosis; hazy para-aortic inflammatory stranding concerning for aortitis or vascular injury cardio eval appreciated ECHO Carotid monitor HH with goal to keep Hgb > 7 supportive care case discussed and evaluated by supervising physician Caty Dozier NP Jan 05, 2020 10:19
--- NOTE | 2020-01-05 11:38 | Neurology Progress Note ---
Interim History Interim History ROS Limited/Unobtainable: No Complaints: none Events: pt resting Review of Systems All Systems: reviewed and negative except above Objective Physical Exam Last Vital Signs Date Time Temp Pulse Resp B/P (MAP) Pulse Ox O2 Delivery O2 Flow Rate FiO2 01/05/20 09:00 Room Air 01/05/20 08:00 98.1 88 18 129/79 (96) 93 Laboratory Tests Test 01/05/20 06:00 White Blood Count 5.8 K/UL (4.8-10.8) Red Blood Count 3.00 M/UL (4.20-5.40) L Hemoglobin 10.2 G/DL (12.0-16.0) L Hematocrit 32.9 % (37.0-47.0) L Mean Corpuscular Volume 110 FL (80-99) H Mean Corpuscular Hemoglobin 33.8 PG (27.0-31.0) H Mean Corpuscular Hemoglobin Concent 30.9 G/DL (32.0-36.0) L Red Cell Distribution Width 13.5 % (11.6-14.8) Platelet Count 194 K/UL (150-450) Mean Platelet Volume 6.6 FL (6.5-10.1) Neutrophils (%) (Auto) 58.6 % (45.0-75.0) Lymphocytes (%) (Auto) 29.4 % (20.0-45.0) Monocytes (%) (Auto) 9.0 % (1.0-10.0) Eosinophils (%) (Auto) 0.7 % (0.0-3.0) Basophils (%) (Auto) 2.3 % (0.0-2.0) H Sodium Level 142 MMOL/L (136-145) Potassium Level 4.1 MMOL/L (3.5-5.1) Chloride Level 106 MMOL/L (98-107) Carbon Dioxide Level 28 MMOL/L (21-32) Anion Gap 8 mmol/L (5-15) Blood Urea Nitrogen 15 mg/dL (7-18) Creatinine 0.7 MG/DL (0.55-1.30) Estimat Glomerular Filtration Rate > 60 mL/min (>60) Glucose Level 112 MG/DL (74-106) H Calcium Level 9.0 MG/DL (8.5-10.1) Troponin I 0.007 ng/mL (0.000-0.056) Neurologic Exam Imaging Objective Physical Exam Vital signs reviewed General: Patient is l;miriam in bed no distress Neuro: Awake and Oriented x4 Cranial nerves I-XII tested PERRLA No dysarthria tongue is midline No involuntary movements Bilateral Upper Extremities 5/5 Bilateral lower extremities 4/5 Sensation decreased in bilat feet Balance deficit seen Coordination tested discoloration in bilateral legs Impression/Recommendations Diagnostic Impression 1. 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 Bhanu Lawrence --> s/p craniotomy and resection, has been o Keppra and Depakote since 2002 --> s/p chemo and radiation for growth in 2002 as well --. remains on Keppra and Depakote is following Dr. Pedraza at [facility] --> CT Head imaging reviewed here 2. 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 3. History of DVT --. s/p IVC filter placement Recommendations 1. MRI Brain with and without contrast and attempt to request records from o utpatient Neurologist 2. PT Evaluation continue assistive device Falls Precautions Jeannie Singer NP Jan 05, 2020 11:38
[2020-01-05] MEDS ORDERED: Gadavist 7.5mMol/7.5ml vial IV PRN (12:00)
[2020-01-05 12:02] VITALS: BP 146/82
[2020-01-05] MEDS: Methocarbamol 500mg tab ORAL PRN (15:07)
--- NOTE | 2020-01-05 15:09 | Internal Med Progress Note ---
Subjective Date of Service: Jan 05, 2020 Physician Name Marky Quinones Attending Physician Hector Magana MD Current Medications Medications (Trade) Dose Ordered Sig/Stone Route PRN Reason Start Time Stop Time Status Last Admin Dose Admin Acetaminophen (Tylenol) 650 mg Q4H PRN ORAL Temp >100.5 01/02/20 18:45 02/01/20 18:44 Acetaminophen/ Hydrocodone Bitart ([place] 5/325) 1 tab Q6H PRN ORAL For Pain 01/03/20 14:15 01/10/20 14:14 01/05/20 02:50 Dextrose (Dextrose 50%) 25 ml Q30MIN PRN IV Hypoglycemia 01/02/20 18:45 04/01/20 18:44 Dextrose (Dextrose 50%) 50 ml Q30MIN PRN IV Hypoglycemia 01/02/20 18:45 04/01/20 18:44 Divalproex Sodium (Depakote) 500 mg Q12HR ORAL 01/02/20 21:00 02/01/20 20:59 01/05/20 08:22 Gadobutrol (Gadavist) 7.5 mmol NOW PRN IV Radiology Procedure 01/05/20 12:00 01/07/20 11:59 Levetiracetam (Keppra) 1,000 mg Q12HR ORAL 01/02/20 21:00 02/01/20 20:59 01/05/20 08:22 Methocarbamol (Robaxin) 500 mg TID PRN ORAL back pain 01/03/20 06:45 02/02/20 06:44 01/03/20 20:50 Ondansetron HCl (Zofran) 4 mg Q6H PRN IVP Nausea & Vomiting 01/02/20 18:45 02/01/20 18:44 Polyethylene Glycol (Miralax) 17 gm HSPRN PRN ORAL Constipation 01/02/20 18:45 02/01/20 18:44 Zolpidem Tartrate (Ambien) 5 mg HSPRN PRN ORAL Insomnia 01/02/20 18:45 01/09/20 18:44 Allergies: Coded Allergies: IODINATED CONTRAST MEDIA (Verified Allergy, Severe, 01/02/20) Hives Uncoded Allergies: PENICILLIN (Allergy, Unknown, 01/02/20) ROS Limited/Unobtainable: No Constitutional: Reports: no symptoms HEENT: Reports: no symptoms Cardiovascular: Reports: no symptoms Respiratory: Reports: no symptoms Gastrointestinal/Abdominal: Reports: no symptoms Genitourinary: Reports: no symptoms Neurologic/Psychiatric: Reports: no symptoms Subjective 76 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 Cover for Int an-Dr Magana Objective Last Vital Signs Date Time Temp Pulse Resp B/P (MAP) Pulse Ox O2 Delivery O2 Flow Rate FiO2 01/05/20 12:02 98.1 74 18 146/82 (103) 95 01/05/20 09:00 Room Air Laboratory Tests Test 01/05/20 06:00 White Blood Count 5.8 K/UL (4.8-10.8) Red Blood Count 3.00 M/UL (4.20-5.40) L Hemoglobin 10.2 G/DL (12.0-16.0) L Hematocrit 32.9 % (37.0-47.0) L Mean Corpuscular Volume 110 FL (80-99) H Mean Corpuscular Hemoglobin 33.8 PG (27.0-31.0) H Mean Corpuscular Hemoglobin Concent 30.9 G/DL (32.0-36.0) L Red Cell Distribution Width 13.5 % (11.6-14.8) Platelet Count 194 K/UL (150-450) Mean Platelet Volume 6.6 FL (6.5-10.1) Neutrophils (%) (Auto) 58.6 % (45.0-75.0) Lymphocytes (%) (Auto) 29.4 % (20.0-45.0) Monocytes (%) (Auto) 9.0 % (1.0-10.0) Eosinophils (%) (Auto) 0.7 % (0.0-3.0) Basophils (%) (Auto) 2.3 % (0.0-2.0) H Sodium Level 142 MMOL/L (136-145) Potassium Level 4.1 MMOL/L (3.5-5.1) Chloride Level 106 MMOL/L (98-107) Carbon Dioxide Level 28 MMOL/L (21-32) Anion Gap 8 mmol/L (5-15) Blood Urea Nitrogen 15 mg/dL (7-18) Creatinine 0.7 MG/DL (0.55-1.30) Estimat Glomerular Filtration Rate > 60 mL/min (>60) Glucose Level 112 MG/DL (74-106) H Calcium Level 9.0 MG/DL (8.5-10.1) Troponin I 0.007 ng/mL (0.000-0.056) Intake and Output 01/04/20 01/05/20 19:00 07:00 Intake Total 840 ml 480 ml Output Total 800 ml Balance 40 ml 480 ml Intake Oral 840 ml 480 ml Output Urine Total 800 ml # Voids 3 Objective PHYSICAL EXAMINATION: GENERAL: The patient is awake, responsive, no acute distress. HEAD AND NECK: Pupils equal and reactive to light. Extraocular movements intact. Neck was supple. No JVD. LUNGS: Good air entry. No wheezing or rales. HEART: S1, S2. Regular rhythm. No murmur or gallop. ABDOMEN: Soft, nondistended, nontender, positive bowel sounds. EXTREMITIES: No cyanosis, clubbing, or edema. NEUROLOGIC: collection advisor II through XII grossly intact. Motor is 5/5 in all extremities. Gait was not assessed due to the patient's status. RECTAL: Refused and deferred. GENITOURINARY: Refused and deferred. Assessment/Plan Assessment/Plan ASSESSMENT: 1. Unsteady gait with recurrent falls. 2. History of DVT, status post IVC filter. 3. Anemia. 4. History of Rosai-Eran brain tumor, status post resection. PLAN: 1. Admit the patient to the medical floor. 2. Dr. Adams = pulmonary consultation. 3. Code status is full code. 4. DVT prophylaxis is heparin subcu. 5. neurology consult=Marky Pimentel MD Jan 05, 2020 15:09
[2020-01-05 16:00] VITALS: BP 132/65
[2020-01-05 20:00] VITALS: BP 144/64
--- NOTE | 2020-01-05 20:34 | Cardiology Report ---
APPROVED REPORT EKG Measurement Heart [id number] <Conclusion> Normal sinus rhythm Anterior infarct, age undetermined Abnormal ECG
[2020-01-06] VITALS: BP 129/81
[2020-01-06 03:27] VITALS: BP 137/61
[2020-01-06] MEDS: HYDROcodone/Acetamin 5/325 tab ORAL PRN (03:31)
[2020-01-06 06:50] LABS: BASOPHILS % (AUTO) 1.8 % (0.0-2.0); EOSINOPHILS % (AUTO) 0.9 % (0.0-3.0); HEMATOCRIT 32.7 % (37.0-47.0); HEMOGLOBIN 10.1 G/DL (12.0-16.0); LYMPHOCYTES % (AUTO) 36.4 % (20.0-45.0); MEAN CORPUSCULAR VOLUME 110 FL (80-99); MONOCYTES % (AUTO) 9.5 % (1.0-10.0); NEUTROPHILS % (AUTO) 51.4 % (45.0-75.0); PLATELET COUNT 210 K/UL (150-450); RED BLOOD COUNT 2.99 M/UL (4.20-5.40); RED CELL DISTRIBUTION WIDTH 13.3 % (11.6-14.8); WHITE BLOOD COUNT 6.2 K/UL (4.8-10.8)
[2020-01-06 07:30] LABS: ANION GAP 4 mmol/L (5-15); BLOOD UREA NITROGEN 11 mg/dL (7-18); CALCIUM 8.7 MG/DL (8.5-10.1); CARBON DIOXIDE 31 MMOL/L (21-32); CHLORIDE 105 MMOL/L (98-107); CREATININE 0.7 MG/DL (0.55-1.30); POTASSIUM 4.1 MMOL/L (3.5-5.1); SODIUM 140 MMOL/L (136-145)
--- NOTE | 2020-01-06 08:29 | Diagnostic Imaging Report ---
EXAM: US Duplex Bilateral Extracranial Arteries CLINICAL HISTORY: SYNCOPE TECHNIQUE: Real-time duplex ultrasound scan of the extracranial arteries integrating B-mode two-dimensional vascular structure, Doppler spectral analysis and color flow Doppler imaging. COMPARISON: No relevant prior studies available. FINDINGS: Right common carotid artery: Unremarkable. No occlusion or significant stenosis on color flow and spectral Doppler imaging. Right internal carotid artery: Unremarkable. No occlusion or significant stenosis on color flow and spectral Doppler imaging. Right external carotid artery: Unremarkable. No occlusion or significant stenosis on color flow and spectral Doppler imaging. Right vertebral artery: Unremarkable. Antegrade flow. Right ICA/CCA ratio: Unremarkable. Within normal limits. Left common carotid artery: Unremarkable. No occlusion or significant stenosis on color flow and spectral Doppler imaging. Left internal carotid artery: Unremarkable. No occlusion or significant stenosis on color flow and spectral Doppler imaging. Left external carotid artery: Unremarkable. No occlusion or significant stenosis on color flow and spectral Doppler imaging. Left vertebral artery: Unremarkable. Antegrade flow. Left ICA/CCA ratio: Unremarkable. Within normal limits. Lymph nodes: Unremarkable. No lymphadenopathy. CAROTID STENOSIS REFERENCE USING SRU CRITERIA: Mild - <50% stenosis. ICA PSV is less than 125 cm/second and plaque or intimal thickening is visible. Moderate - 50-69% stenosis. ICA PSV is 125 to 230 cm/second and plaque is visible. Severe - 70-94% stenosis. ICA PSV is more than 230 cm/second and visible plaque with lumen narrowing is seen. Near occlusion - 95-99% stenosis. ICA PSV is variable and significant plaque with luminal narrowing is seen. Occluded - 100% stenosis. No flow identified. IMPRESSION: Normal duplex ultrasound of the neck.
[2020-01-06] MEDS: Depakote 500mg tab ORAL SCH ×2 (09:47→21:08)
--- NOTE | 2020-01-06 10:22 | Cardiac Electrophysiology PN ---
Assessment/Plan Assessment/Plan 1. Status post recurrent falls x3 in the patient with history of brain tumor. A CT of the brain showed postsurgical changes with bilateral pressure craniectomy with no evidence for intracranial hemorrhage or mass effect or midline shift. Echocardiogram Nl EF and no . First troponin negative MRI brain pending today 2. History of DVT status post IVC filter. 3. History of Rosai-Eran brain tumor status post resection. 4. Anemia. Subjective Subjective Brain MRI without contrast pending Objective Last 24 Hour Vital Signs Date Time Temp Pulse Resp B/P (MAP) Pulse Ox O2 Delivery O2 Flow Rate FiO2 01/06/20 03:27 98.1 77 18 137/61 (86) 100 01/06/20 00:00 97.7 79 20 129/81 (97) 98 01/05/20 21:00 Room Air 01/05/20 20:00 98.0 76 20 144/64 (90) 96 01/05/20 16:00 97.7 81 20 132/65 (87) 100 01/05/20 12:02 98.1 74 18 146/82 (103) 95 Intake and Output 01/05/20 01/06/20 18:59 06:59 Intake Total 720 ml 400 ml Output Total 800 ml Balance -80 ml 400 ml Intake Oral 720 ml 400 ml Output Urine Total 800 ml # Voids 2 Laboratory Tests Test 01/06/20 05:25 White Blood Count 6.2 K/UL (4.8-10.8) Red Blood Count 2.99 M/UL (4.20-5.40) L Hemoglobin 10.1 G/DL (12.0-16.0) L Hematocrit 32.7 % (37.0-47.0) L Mean Corpuscular Volume 110 FL (80-99) H Mean Corpuscular Hemoglobin 33.6 PG (27.0-31.0) H Mean Corpuscular Hemoglobin Concent 30.7 G/DL (32.0-36.0) L Red Cell Distribution Width 13.3 % (11.6-14.8) Platelet Count 210 K/UL (150-450) Mean Platelet Volume 5.9 FL (6.5-10.1) L Neutrophils (%) (Auto) 51.4 % (45.0-75.0) Lymphocytes (%) (Auto) 36.4 % (20.0-45.0) Monocytes (%) (Auto) 9.5 % (1.0-10.0) Eosinophils (%) (Auto) 0.9 % (0.0-3.0) Basophils (%) (Auto) 1.8 % (0.0-2.0) Sodium Level 140 MMOL/L (136-145) Potassium Level 4.1 MMOL/L (3.5-5.1) Chloride Level 105 MMOL/L (98-107) Carbon Dioxide Level 31 MMOL/L (21-32) Anion Gap 4 mmol/L (5-15) L Blood Urea Nitrogen 11 mg/dL (7-18) Creatinine 0.7 MG/DL (0.55-1.30) Estimat Glomerular Filtration Rate > 60 mL/min (>60) Glucose Level 80 MG/DL (74-106) Calcium Level 8.7 MG/DL (8.5-10.1) Objective HEAD AND NECK: Showed no JVD. LUNGS: Clear. CARDIOVASCULAR: Shows regular S1 and S2 with no gallop or murmur. ABDOMEN: Soft. EXTREMITIES: No pitting edema. Samson Torrez MD Jan 06, 2020 10:22
--- NOTE | 2020-01-06 10:37 | Cardiology Report ---
APPROVED REPORT EXAM: Two-dimensional and M-mode echocardiogram with Doppler and color Doppler. INDICATION Syncope M-Mode DIMENSIONS IVSd0.8 (0.7-1.1cm)Left Atrium (MM)3.5 (1.6-4.0cm) LVDd4.3 (3.5-5.6cm)Aortic Root2.7 (2.0-3.7cm) PWd0.9 (0.7-1.1cm)Aortic Cusp Exc.1.9 (1.5-2.0cm) IVSs1.2 cm LVDs2.9 (2.5-4.0cm) PWs0.9 cm <Conclusion> Normal left ventricular chamber size, systolic function and wall motion. Left ventricular ejection fraction estimated to be 65 %. No pericardial effusion. Small pleural effusion with heterogenous echogenic materials inside. All other cardiac chamber sizes are within normal limits. Focal aortic valve sclerosis with adequate cusp excursion. Thickened mitral valve leaflets with normal excursion. Mitral annulus and aortic root calcification. Pulmonic valve not well visualized. Normal tricuspid valve structure. IVC at normal size with physiologic collapse. A color flow and spectral Doppler study was performed and revealed: No aortic regurgitation. No mitral regurgitation. Mitral diastolic velocities suggest reduced left ventricular relaxation c/w mild diastolic dysfunction (Grade I). Trace tricuspid regurgitation. Tricuspid systolic velocities suggests peak right ventricular systolic pressure of 30 mmHg.
--- NOTE | 2020-01-06 11:02 | Pulmonology Progress Note ---
Subjective ROS Limited/Unobtainable: No Allergies: Coded Allergies: IODINATED CONTRAST MEDIA (Verified Allergy, Severe, 01/02/20) Hives Uncoded Allergies: PENICILLIN (Allergy, Unknown, 01/02/20) All Systems: reviewed and negative except above Objective Last 24 Hour Vital Signs Date Time Temp Pulse Resp B/P (MAP) Pulse Ox O2 Delivery O2 Flow Rate FiO2 01/06/20 09:00 Room Air 01/06/20 03:27 98.1 77 18 137/61 (86) 100 01/06/20 00:00 97.7 79 20 129/81 (97) 98 01/05/20 21:00 Room Air 01/05/20 20:00 98.0 76 20 144/64 (90) 96 01/05/20 16:00 97.7 81 20 132/65 (87) 100 01/05/20 12:02 98.1 74 18 146/82 (103) 95 Intake and Output 01/05/20 01/06/20 19:00 07:00 Intake Total 720 ml 400 ml Output Total 800 ml Balance -80 ml 400 ml Intake Oral 720 ml 400 ml Output Urine Total 800 ml # Voids 2 General Appearance: WD/WN, no acute distress HEENT: normocephalic, atraumatic, anicteric, mucous membranes moist Respiratory: lungs clear, no respiratory distress, no accessory muscle use Cardiovascular: normal peripheral pulses, normal rate Abdomen: normal bowel sounds, soft, non tender Extremities: no edema Neurologic: abnormal gait - unsteady gait , alert, oriented x 3, responsive Musculoskeletal: normal muscle bulk Laboratory Tests 01/06/20 05:25: White Blood Count 6.2, Red Blood Count 2.99L, Hemoglobin 10.1L, Hematocrit 32.7L , Mean Corpuscular Volume 110H, Mean Corpuscular Hemoglobin 33.6H, Mean Corpuscular Hemoglobin Concent 30.7L, Red Cell Distribution Width 13.3, Platelet Count 210, Mean Platelet Volume 5.9L, Neutrophils (%) (Auto) 51.4, Lymphocytes (%) (Auto) 36.4, Monocytes (%) (Auto) 9.5, Eosinophils (%) (Auto) 0.9, Basophils (%) (Auto) 1.8, Sodium Level 140, Potassium Level 4.1, Chloride Level 105, Carbon Dioxide Level 31, Anion Gap 4L, Blood Urea Nitrogen 11, Creatinine 0.7, Estimat Glomerular Filtration Rate > 60, Glucose Level 80, Calcium Level 8.7 Current Medications Medications (Trade) Dose Ordered Sig/Stone Route PRN Reason Start Time Stop Time Status Last Admin Dose Admin Acetaminophen (Tylenol) 650 mg Q4H PRN ORAL Temp >100.5 01/02/20 18:45 02/01/20 18:44 Acetaminophen/ Hydrocodone Bitart ([place] 5/325) 1 tab Q6H PRN ORAL For Pain 01/03/20 14:15 01/10/20 14:14 01/06/20 03:31 Dextrose (Dextrose 50%) 25 ml Q30MIN PRN IV Hypoglycemia 01/02/20 18:45 04/01/20 18:44 Dextrose (Dextrose 50%) 50 ml Q30MIN PRN IV Hypoglycemia 01/02/20 18:45 04/01/20 18:44 Divalproex Sodium (Depakote) 500 mg Q12HR ORAL 01/02/20 21:00 02/01/20 20:59 01/06/20 09:47 Gadobutrol (Gadavist) 7.5 mmol NOW PRN IV Radiology Procedure 01/05/20 12:00 01/07/20 11:59 Levetiracetam (Keppra) 1,000 mg Q12HR ORAL 01/02/20 21:00 02/01/20 20:59 01/06/20 09:47 Methocarbamol (Robaxin) 500 mg TID PRN ORAL back pain 01/03/20 06:45 02/02/20 06:44 01/05/20 15:07 Ondansetron HCl (Zofran) 4 mg Q6H PRN IVP Nausea & Vomiting 01/02/20 18:45 02/01/20 18:44 Polyethylene Glycol (Miralax) 17 gm HSPRN PRN ORAL Constipation 01/02/20 18:45 02/01/20 18:44 Zolpidem Tartrate (Ambien) 5 mg HSPRN PRN ORAL Insomnia 01/02/20 18:45 01/09/20 18:44 Assessment/Plan Problems: (1) Frequent falls (2) Neuropathy of left lower extremity (3) Seizure disorder (4) Brain tumor Assessment/Plan fall precaution PT eval and Rx seizure precautions, continue Keppra and Depakote CT of the head with postsurgical changes ; no evidence of acute ICH, no mass- effect or midline shift; EEG pending CT of L spine noted : infrarenal IVC filter in place ; moderate degenerative disc disease with facet arthrosis; hazy para-aortic inflammatory stranding concerning for aortitis or vascular injury check inflammatory markers dc planning Donnell Adams MD Jan 06, 2020 11:02
--- NOTE | 2020-01-06 11:45 | Electroencephalogram ---
DATE OF PROCEDURE: 01/05/2020 EEG REPORT REQUESTING PHYSICIANS: 1. Hector Magana MD. 2. Sohail Tran MD READING PHYSICIAN: Issac Blackmon MD. HISTORY: This EEG was performed on a 69-year-old lady with a history of prior brain surgery who has recently been having frequent falls. The purpose of this EEG was to evaluate the patient for the degree and type of cerebral dysfunction and to exclude ongoing ictal or interictal phenomenon. TECHNICAL NOTE: This EEG was performed on a [employer] with electrodes placed on the scalp according to the international 10-20 system. [id number] and [id number] montages were used. The EEG was technically satisfactory and was performed in the awake, drowsy, and sleep states. OBSERVATIONS: In the best-awake state, the background activity consisted of 8 to 9 hertz posteriorly predominant alpha activity. Drowsiness was characterized by dissolution of the alpha rhythm and appearance of slow frequencies in the 5 to 6 hertz theta range. During drowsiness, bilateral frontotemporal polymorphic delta activity was noted. Stage 2 sleep was characterized by further slowing of the background in the delta and theta range, the presence of vertex waves and 14 hertz sleep spindles. The sleep spindles were definitely better formed over the left hemisphere compared to the right hemisphere. No epileptiform discharges were seen. IMPRESSION: This is an abnormal EEG characterized by 1. Presence of bilateral frontotemporal polymorphic delta activity seen during drowsiness. 2. Poorly formed sleep spindles over the right hemisphere. COMMENT: The study is consistent with 1. Bilateral frontotemporal dysfunction. 2. Right hemispheric dysfunction. 3. Clinical correlation is recommended. Issac Blackmon M.D. DR: Nathan JOB#: [id number] CC:
[2020-01-06 12:00] VITALS: BP 149/79
--- NOTE | 2020-01-06 14:02 | Diagnostic Imaging Report ---
Indication: Head trauma status post fall, balance and coordination issues, prior history of brain tumor, prior history of craniotomy and resection Technique: sagittal T1 fast spin echo, axial T1 and T2 FLAIR PROPELLER, axial T2 FS PROPELLER, T2* GRE, axial diffusion weighted images, post contrast axial and coronal T1 FLAIR PROPELLER images. ADC and exponential ADC maps generated Comparison: No comparison MRI. Reference made to head CT dated 01/02/2020 Findings: There is a craniectomy defect at the vertex. There is susceptibility artifact subjacent to the craniectomy defect which probably correlates to the extensive meningeal calcification demonstrated on recent CT scan. There is also considerable meningeal thickening and enhancement along the central vertex region of the occipital, parietal, and posterior frontal lobes, as well as along the falx, distribution likewise correlating to the calcifications demonstrated on prior CT. While thickened, no definite masslike abnormality is seen involving the meninges.. There is some encephalomalacia subjacent to the cranial defect, more noticeable to the right of midline and to the left. No definite abnormal parenchymal enhancement is evident. No abnormal areas of restricted diffusion to suggest acute infarction. No acute hemorrhage or edema. No mass effect nor midline shift. No abnormal contrast enhancement other than the meningeal enhancement.. There is age-related enlargement of the ventricles and extra axial CSF spaces. There are punctate T2 signal hyperintensities in the white matter, predominantly in the basal ganglia. There is confluent subependymal high T2 signal as well. Visualized orbits and sinuses are unremarkable. . Impression: Evidence of prior surgery, with craniectomy defect at the central posterior vertex of the parietal parietal calvarium Underlying meningeal enhancement, in patient with history of Rosai-Eran disease. Intracranially, this disease typically manifests as enhancing meningeal masses. Current exam shows meningeal thickening and enhancement without any mass lesion. Suspect therefore that current meningeal findings represent postsurgical changes rather than recurrent tumor. Nonetheless, comparison with any prior outside images that may be available would be useful Mild encephalomalacia at the posterior parietal midline vertex, right greater than left. Suspect related to the above Other chronic and age-related changes, including age-related volume loss and periventricular high T2 signal presumably indicating chronic microvascular ischemic changes Negative for acute intracranial bleed, edema, infarct, or mass effect
[2020-01-06 16:00] VITALS: BP 133/63
--- NOTE | 2020-01-06 18:16 | Internal Med Progress Note ---
Subjective Date of Service: Jan 06, 2020 Physician Name Marky Quinones Attending Physician Hector Magana MD Current Medications Medications (Trade) Dose Ordered Sig/Stone Route PRN Reason Start Time Stop Time Status Last Admin Dose Admin Acetaminophen (Tylenol) 650 mg Q4H PRN ORAL Temp >100.5 01/02/20 18:45 02/01/20 18:44 Acetaminophen/ Hydrocodone Bitart ([place] 5/325) 1 tab Q6H PRN ORAL For Pain 01/03/20 14:15 01/10/20 14:14 01/06/20 03:31 Dextrose (Dextrose 50%) 25 ml Q30MIN PRN IV Hypoglycemia 01/02/20 18:45 04/01/20 18:44 Dextrose (Dextrose 50%) 50 ml Q30MIN PRN IV Hypoglycemia 01/02/20 18:45 04/01/20 18:44 Divalproex Sodium (Depakote) 500 mg Q12HR ORAL 01/02/20 21:00 02/01/20 20:59 01/06/20 09:47 Gadobutrol (Gadavist) 7.5 mmol NOW PRN IV Radiology Procedure 01/05/20 12:00 01/07/20 11:59 Levetiracetam (Keppra) 1,000 mg Q12HR ORAL 01/02/20 21:00 02/01/20 20:59 01/06/20 09:47 Methocarbamol (Robaxin) 500 mg TID PRN ORAL back pain 01/03/20 06:45 02/02/20 06:44 01/05/20 15:07 Ondansetron HCl (Zofran) 4 mg Q6H PRN IVP Nausea & Vomiting 01/02/20 18:45 02/01/20 18:44 Polyethylene Glycol (Miralax) 17 gm HSPRN PRN ORAL Constipation 01/02/20 18:45 02/01/20 18:44 Zolpidem Tartrate (Ambien) 5 mg HSPRN PRN ORAL Insomnia 01/02/20 18:45 01/09/20 18:44 Allergies: Coded Allergies: IODINATED CONTRAST MEDIA (Verified Allergy, Severe, 01/02/20) Hives Uncoded Allergies: PENICILLIN (Allergy, Unknown, 01/02/20) ROS Limited/Unobtainable: No Constitutional: Reports: no symptoms HEENT: Reports: no symptoms Cardiovascular: Reports: no symptoms Respiratory: Reports: no symptoms Gastrointestinal/Abdominal: Reports: no symptoms Genitourinary: Reports: no symptoms Neurologic/Psychiatric: Reports: no symptoms Subjective 76 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 Cover for Int an-Dr Magana Objective Last Vital Signs Date Time Temp Pulse Resp B/P (MAP) Pulse Ox O2 Delivery O2 Flow Rate FiO2 01/06/20 16:00 97.0 83 20 133/63 (86) 98 01/06/20 09:00 Room Air Laboratory Tests Test 01/06/20 05:25 White Blood Count 6.2 K/UL (4.8-10.8) Red Blood Count 2.99 M/UL (4.20-5.40) L Hemoglobin 10.1 G/DL (12.0-16.0) L Hematocrit 32.7 % (37.0-47.0) L Mean Corpuscular Volume 110 FL (80-99) H Mean Corpuscular Hemoglobin 33.6 PG (27.0-31.0) H Mean Corpuscular Hemoglobin Concent 30.7 G/DL (32.0-36.0) L Red Cell Distribution Width 13.3 % (11.6-14.8) Platelet Count 210 K/UL (150-450) Mean Platelet Volume 5.9 FL (6.5-10.1) L Neutrophils (%) (Auto) 51.4 % (45.0-75.0) Lymphocytes (%) (Auto) 36.4 % (20.0-45.0) Monocytes (%) (Auto) 9.5 % (1.0-10.0) Eosinophils (%) (Auto) 0.9 % (0.0-3.0) Basophils (%) (Auto) 1.8 % (0.0-2.0) Sodium Level 140 MMOL/L (136-145) Potassium Level 4.1 MMOL/L (3.5-5.1) Chloride Level 105 MMOL/L (98-107) Carbon Dioxide Level 31 MMOL/L (21-32) Anion Gap 4 mmol/L (5-15) L Blood Urea Nitrogen 11 mg/dL (7-18) Creatinine 0.7 MG/DL (0.55-1.30) Estimat Glomerular Filtration Rate > 60 mL/min (>60) Glucose Level 80 MG/DL (74-106) Calcium Level 8.7 MG/DL (8.5-10.1) C-Reactive Protein, Quantitative 6.3 mg/dL (0.00-0.90) H Intake and Output 01/05/20 01/06/20 19:00 07:00 Intake Total 720 ml 400 ml Output Total 800 ml Balance -80 ml 400 ml Intake Oral 720 ml 400 ml Output Urine Total 800 ml # Voids 2 Objective PHYSICAL EXAMINATION: GENERAL: The patient is awake, responsive, no acute distress. HEAD AND NECK: Pupils equal and reactive to light. Extraocular movements intact. Neck was supple. No JVD. LUNGS: Good air entry. No wheezing or rales. HEART: S1, S2. Regular rhythm. No murmur or gallop. ABDOMEN: Soft, nondistended, nontender, positive bowel sounds. EXTREMITIES: No cyanosis, clubbing, or edema. NEUROLOGIC: poker prop player II through XII grossly intact. Motor is 5/5 in all extremities. Gait was not assessed due to the patient's status. RECTAL: Refused and deferred. GENITOURINARY: Refused and deferred. Assessment/Plan Assessment/Plan ASSESSMENT: 1. Unsteady gait with recurrent falls. 2. History of DVT, status post IVC filter. 3. Anemia. 4. History of Rosai-Eran brain tumor, status post resection. PLAN: 1. Admit the patient to the medical floor. 2. Dr. Adams = pulmonary consultation. 3. Code status is full code. 4. DVT prophylaxis is heparin subcu. 5. neurology consult=Dr Tran 6. MRI brain=no acute findings Marky Quinones MD Jan 06, 2020 18:16
[2020-01-06 20:00] VITALS: BP 134/69
[2020-01-07] VITALS: BP 159/79
[2020-01-07 04:00] VITALS: BP 150/79
[2020-01-07 08:00] VITALS: BP 133/85
[2020-01-07] MEDS: Depakote 500mg tab ORAL SCH ×2 (09:06→21:31)
[2020-01-07 12:00] VITALS: BP 131/75
--- NOTE | 2020-01-07 12:40 | Pulmonology Progress Note ---
Subjective ROS Limited/Unobtainable: No Allergies: Coded Allergies: IODINATED CONTRAST MEDIA (Verified Allergy, Severe, 01/02/20) Hives Uncoded Allergies: PENICILLIN (Allergy, Unknown, 01/02/20) All Systems: reviewed and negative except above Objective Last 24 Hour Vital Signs Date Time Temp Pulse Resp B/P (MAP) Pulse Ox O2 Delivery O2 Flow Rate FiO2 01/07/20 12:00 97.7 87 18 131/75 (93) 98 01/07/20 09:00 Room Air 01/07/20 08:00 97.9 86 17 133/85 (101) 96 01/07/20 04:00 98.2 85 17 150/79 (102) 99 01/07/20 00:00 98.5 78 17 159/79 (105) 99 01/06/20 20:30 Room Air 01/06/20 20:00 97.9 89 17 134/69 (90) 98 01/06/20 16:00 97.0 83 20 133/63 (86) 98 Intake and Output 01/06/20 01/07/20 19:00 07:00 Intake Total 720 ml 360 ml Output Total 700 ml 700 ml Balance 20 ml -340 ml Intake Oral 720 ml 360 ml Output Urine Total 700 ml 700 ml General Appearance: WD/WN, no acute distress HEENT: normocephalic, atraumatic, anicteric, mucous membranes moist Respiratory: lungs clear, no respiratory distress, no accessory muscle use Cardiovascular: normal peripheral pulses, normal rate Abdomen: normal bowel sounds, soft, non tender Extremities: no edema Neurologic: abnormal gait - unsteady gait , alert, oriented x 3, responsive Musculoskeletal: normal muscle bulk Current Medications Medications (Trade) Dose Ordered Sig/Stone Route PRN Reason Start Time Stop Time Status Last Admin Dose Admin Acetaminophen (Tylenol) 650 mg Q4H PRN ORAL Temp >100.5 01/02/20 18:45 02/01/20 18:44 Acetaminophen/ Hydrocodone Bitart ([place] 5/325) 1 tab Q6H PRN ORAL For Pain 01/03/20 14:15 01/10/20 14:14 01/06/20 03:31 Dextrose (Dextrose 50%) 25 ml Q30MIN PRN IV Hypoglycemia 01/02/20 18:45 04/01/20 18:44 Dextrose (Dextrose 50%) 50 ml Q30MIN PRN IV Hypoglycemia 01/02/20 18:45 04/01/20 18:44 Divalproex Sodium (Depakote) 500 mg Q12HR ORAL 01/02/20 21:00 02/01/20 20:59 01/07/20 09:06 Levetiracetam (Keppra) 1,000 mg Q12HR ORAL 01/02/20 21:00 02/01/20 20:59 01/07/20 09:06 Methocarbamol (Robaxin) 500 mg TID PRN ORAL back pain 01/03/20 06:45 02/02/20 06:44 01/05/20 15:07 Ondansetron HCl (Zofran) 4 mg Q6H PRN IVP Nausea & Vomiting 01/02/20 18:45 02/01/20 18:44 Polyethylene Glycol (Miralax) 17 gm HSPRN PRN ORAL Constipation 01/02/20 18:45 02/01/20 18:44 Zolpidem Tartrate (Ambien) 5 mg HSPRN PRN ORAL Insomnia 01/02/20 18:45 01/09/20 18:44 Assessment/Plan Problems: (1) Frequent falls (2) Neuropathy of left lower extremity (3) Seizure disorder (4) Brain tumor Assessment/Plan doing better MRI reviewed PT eval and Rx seizure precautions, continue Keppra and Depakote CT of the head with postsurgical changes ; no evidence of acute ICH, no mass- effect or midline shift; EEG pending CT of L spine noted : infrarenal IVC filter in place ; moderate degenerative disc disease with facet arthrosis; hazy para-aortic inflammatory stranding concerning for aortitis or vascular injury check inflammatory markers dc planning for today to rehab Donnell Adams MD Jan 07, 2020 12:40
--- NOTE | 2020-01-07 12:51 | Cardiac Electrophysiology PN ---
Assessment/Plan Assessment/Plan 1. Status post recurrent falls x3 in the patient with history of brain tumor. A CT of the brain showed postsurgical changes with bilateral pressure craniectomy with no evidence for intracranial hemorrhage or mass effect or midline shift. Echocardiogram Nl EF and no . First troponin negative. S/P MRI brain 2. History of DVT status post IVC filter. 3. History of Rosai-Eran brain tumor status post resection. 4. Anemia. Subjective Subjective Had Brain MRI without contrast pending. Objective Last 24 Hour Vital Signs Date Time Temp Pulse Resp B/P (MAP) Pulse Ox O2 Delivery O2 Flow Rate FiO2 01/07/20 12:00 97.7 87 18 131/75 (93) 98 01/07/20 09:00 Room Air 01/07/20 08:00 97.9 86 17 133/85 (101) 96 01/07/20 04:00 98.2 85 17 150/79 (102) 99 01/07/20 00:00 98.5 78 17 159/79 (105) 99 01/06/20 20:30 Room Air 01/06/20 20:00 97.9 89 17 134/69 (90) 98 01/06/20 16:00 97.0 83 20 133/63 (86) 98 Intake and Output 01/06/20 01/07/20 19:00 07:00 Intake Total 720 ml 360 ml Output Total 700 ml 700 ml Balance 20 ml -340 ml Intake Oral 720 ml 360 ml Output Urine Total 700 ml 700 ml Objective HEAD AND NECK: Showed no JVD. LUNGS: Clear. CARDIOVASCULAR: Shows regular S1 and S2 with no gallop or murmur. ABDOMEN: Soft. EXTREMITIES: No pitting edema. Samson Torrez MD Jan 07, 2020 12:51
[2020-01-07 16:00] VITALS: BP 136/90
--- NOTE | 2020-01-07 17:32 | Neurology Progress Note ---
Interim History Interim History ROS Limited/Unobtainable: No Complaints: none Events: no complains Interim History seen working with therapy today, broad base Objective Physical Exam Last Vital Signs Date Time Temp Pulse Resp B/P (MAP) Pulse Ox O2 Delivery O2 Flow Rate FiO2 01/07/20 16:00 97.6 76 18 136/90 (105) 99 01/07/20 09:00 Room Air Neurologic Exam Mental Status: awake, alert Objective ao x 2 bradykinetic but symmetric mild rigidity broad base Impression/Recommendations Problems: (1) Aortitis (2) Seizure disorder (3) Fall (4) Brain tumor Diagnostic Impression Diagnosis Generalized weakness Gait instability Falls frequently Rosai-Eran disease (HCC) Seizure disorder (HCC) 1. Frequent falls since December 2018 with rigidity and tremors - likely parkinsonism. - OT/PT 2. history brain tumor status post resection and chemotherapy, radiation therapy 3. Seizure disorder, secondary to above Plan: Cont AEDs for now PT OT ARU candidate Sohail Tran MD Jan 07, 2020 17:32
--- NOTE | 2020-01-07 17:43 | Internal Med Progress Note ---
Subjective Date of Service: Jan 07, 2020 Physician Name Marky Quinones Attending Physician Hector Magana MD Current Medications Medications (Trade) Dose Ordered Sig/Stone Route PRN Reason Start Time Stop Time Status Last Admin Dose Admin Acetaminophen (Tylenol) 650 mg Q4H PRN ORAL Temp >100.5 01/02/20 18:45 02/01/20 18:44 Acetaminophen/ Hydrocodone Bitart ([place] 5/325) 1 tab Q6H PRN ORAL For Pain 01/03/20 14:15 01/10/20 14:14 01/06/20 03:31 Bisacodyl (Dulcolax) 10 mg DAILYPRN PRN RECTAL Constipation 01/07/20 15:00 04/06/20 14:59 01/07/20 14:56 Dextrose (Dextrose 50%) 25 ml Q30MIN PRN IV Hypoglycemia 01/02/20 18:45 04/01/20 18:44 Dextrose (Dextrose 50%) 50 ml Q30MIN PRN IV Hypoglycemia 01/02/20 18:45 04/01/20 18:44 Divalproex Sodium (Depakote) 500 mg Q12HR ORAL 01/02/20 21:00 02/01/20 20:59 01/07/20 09:06 Levetiracetam (Keppra) 1,000 mg Q12HR ORAL 01/02/20 21:00 02/01/20 20:59 01/07/20 09:06 Methocarbamol (Robaxin) 500 mg TID PRN ORAL back pain 01/03/20 06:45 02/02/20 06:44 01/05/20 15:07 Ondansetron HCl (Zofran) 4 mg Q6H PRN IVP Nausea & Vomiting 01/02/20 18:45 02/01/20 18:44 Polyethylene Glycol (Miralax) 17 gm HSPRN PRN ORAL Constipation 01/02/20 18:45 02/01/20 18:44 Zolpidem Tartrate (Ambien) 5 mg HSPRN PRN ORAL Insomnia 01/02/20 18:45 01/09/20 18:44 Allergies: Coded Allergies: IODINATED CONTRAST MEDIA (Verified Allergy, Severe, 01/02/20) Hives Uncoded Allergies: PENICILLIN (Allergy, Unknown, 01/02/20) ROS Limited/Unobtainable: No Constitutional: Reports: no symptoms HEENT: Reports: no symptoms Cardiovascular: Reports: no symptoms Respiratory: Reports: no symptoms Gastrointestinal/Abdominal: Reports: no symptoms Genitourinary: Reports: no symptoms Neurologic/Psychiatric: Reports: no symptoms Subjective 76 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 Cover for Int med-Dr Magana Objective Last Vital Signs Date Time Temp Pulse Resp B/P (MAP) Pulse Ox O2 Delivery O2 Flow Rate FiO2 01/07/20 16:00 97.6 76 18 136/90 (105) 99 01/07/20 09:00 Room Air Microbiology Date/Time Source Procedure Growth Status 01/07/20 13:54 Nasopharynx SARS-CoV-2 RdRp Gene Assay - Final Complete Intake and Output 01/06/20 01/07/20 19:00 07:00 Intake Total 720 ml 360 ml Output Total 700 ml 700 ml Balance 20 ml -340 ml Intake Oral 720 ml 360 ml Output Urine Total 700 ml 700 ml Objective PHYSICAL EXAMINATION: GENERAL: The patient is awake, responsive, no acute distress. HEAD AND NECK: Pupils equal and reactive to light. Extraocular movements intact. Neck was supple. No JVD. LUNGS: Good air entry. No wheezing or rales. HEART: S1, S2. Regular rhythm. No murmur or gallop. ABDOMEN: Soft, nondistended, nontender, positive bowel sounds. EXTREMITIES: No cyanosis, clubbing, or edema. NEUROLOGIC: revit drafter II through XII grossly intact. Motor is 5/5 in all extremities. Gait was not assessed due to the patient's status. RECTAL: Refused and deferred. GENITOURINARY: Refused and deferred. Assessment/Plan Assessment/Plan ASSESSMENT: 1. Unsteady gait with recurrent falls. 2. History of DVT, status post IVC filter. 3. Anemia. 4. History of Rosai-Eran brain tumor, status post resection. PLAN: 1. Admit the patient to the medical floor. 2. Dr. Adams = pulmonary consultation. 3. Code status is full code. 4. DVT prophylaxis is heparin subcu. 5. neurology consult=Dr Tran 6. MRI brain=no acute findings 7. Transfer to [facility] when bed available. Marky Quinones MD Jan 07, 2020 17:43
[2020-01-07 20:00] VITALS: BP 120/67
[2020-01-08] VITALS: BP 135/66
[2020-01-08 04:00] VITALS: BP 133/66
[2020-01-08 06:23] LABS: BASOPHILS % (AUTO) 1.1 % (0.0-2.0); EOSINOPHILS % (AUTO) 1.1 % (0.0-3.0); HEMATOCRIT 35.9 % (37.0-47.0); HEMOGLOBIN 11.1 G/DL (12.0-16.0); MEAN CORPUSCULAR VOLUME 110 FL (80-99); MONOCYTES % (AUTO) 10.5 % (1.0-10.0); NEUTROPHILS % (AUTO) 57.4 % (45.0-75.0); PLATELET COUNT 248 K/UL (150-450); RED BLOOD COUNT 3.26 M/UL (4.20-5.40); RED CELL DISTRIBUTION WIDTH 13.5 % (11.6-14.8); WHITE BLOOD COUNT 6.1 K/UL (4.8-10.8)
[2020-01-08] MEDS: HYDROcodone/Acetamin 5/325 tab ORAL PRN ×2 (06:29→16:49)
[2020-01-08 06:40] LABS: ANION GAP 6 mmol/L (5-15); BLOOD UREA NITROGEN 16 mg/dL (7-18); CALCIUM 8.9 MG/DL (8.5-10.1); CARBON DIOXIDE 30 MMOL/L (21-32); CHLORIDE 105 MMOL/L (98-107); CREATININE 0.7 MG/DL (0.55-1.30); POTASSIUM 4.1 MMOL/L (3.5-5.1); SODIUM 141 MMOL/L (136-145)
[2020-01-08 08:00] VITALS: BP 106/62
[2020-01-08] MEDS: Depakote 500mg tab ORAL SCH ×2 (08:09→20:05)
--- NOTE | 2020-01-08 09:05 | Neurology Progress Note ---
Interim History Interim History ROS Limited/Unobtainable: No Complaints: none Events: no complains Interim History ambulating better after therapy yesterday no seizures clear for dc Objective Physical Exam Last Vital Signs Date Time Temp Pulse Resp B/P (MAP) Pulse Ox O2 Delivery O2 Flow Rate FiO2 01/08/20 08:00 97.7 88 18 106/62 (77) 99 01/07/20 21:00 Room Air Laboratory Tests Test 01/08/20 05:15 White Blood Count 6.1 K/UL (4.8-10.8) Red Blood Count 3.26 M/UL (4.20-5.40) L Hemoglobin 11.1 G/DL (12.0-16.0) L Hematocrit 35.9 % (37.0-47.0) L Mean Corpuscular Volume 110 FL (80-99) H Mean Corpuscular Hemoglobin 34.1 PG (27.0-31.0) H Mean Corpuscular Hemoglobin Concent 31.0 G/DL (32.0-36.0) L Red Cell Distribution Width 13.5 % (11.6-14.8) Platelet Count 248 K/UL (150-450) Mean Platelet Volume 5.7 FL (6.5-10.1) L Neutrophils (%) (Auto) 57.4 % (45.0-75.0) Lymphocytes (%) (Auto) 30.0 % (20.0-45.0) Monocytes (%) (Auto) 10.5 % (1.0-10.0) H Eosinophils (%) (Auto) 1.1 % (0.0-3.0) Basophils (%) (Auto) 1.1 % (0.0-2.0) Sodium Level 141 MMOL/L (136-145) Potassium Level 4.1 MMOL/L (3.5-5.1) Chloride Level 105 MMOL/L (98-107) Carbon Dioxide Level 30 MMOL/L (21-32) Anion Gap 6 mmol/L (5-15) Blood Urea Nitrogen 16 mg/dL (7-18) Creatinine 0.7 MG/DL (0.55-1.30) Estimat Glomerular Filtration Rate > 60 mL/min (>60) Glucose Level 111 MG/DL (74-106) H Calcium Level 8.9 MG/DL (8.5-10.1) Neurologic Exam Mental Status: awake, alert Objective ao x 2 bradykinetic but symmetric mild rigidity broad base Impression/Recommendations Problems: (1) Aortitis (2) Seizure disorder (3) Fall (4) Brain tumor Diagnostic Impression Diagnosis Generalized weakness Gait instability Falls frequently Rosai-Eran disease (HCC) Seizure disorder (HCC) 1. Frequent falls since December 2018 with rigidity and tremors - likely parkinsonism. - OT/PT 2. history brain tumor status post resection and chemotherapy, radiation therapy 3. Seizure disorder, secondary to above Plan: Cont AEDs for now PT OT ARU candidate Sohail Tran MD Jan 08, 2020 09:05
--- NOTE | 2020-01-08 10:48 | Internal Med Progress Note ---
Subjective Date of Service: Jan 08, 2020 Physician Name Marky Quinones Attending Physician Hector Magana MD Current Medications Medications (Trade) Dose Ordered Sig/Stone Route PRN Reason Start Time Stop Time Status Last Admin Dose Admin Acetaminophen (Tylenol) 650 mg Q4H PRN ORAL Temp >100.5 01/02/20 18:45 02/01/20 18:44 Acetaminophen/ Hydrocodone Bitart ([place] 5/325) 1 tab Q6H PRN ORAL For Pain 01/03/20 14:15 01/10/20 14:14 01/08/20 06:29 Bisacodyl (Dulcolax) 10 mg DAILYPRN PRN RECTAL Constipation 01/07/20 15:00 04/06/20 14:59 01/07/20 14:56 Dextrose (Dextrose 50%) 25 ml Q30MIN PRN IV Hypoglycemia 01/02/20 18:45 04/01/20 18:44 Dextrose (Dextrose 50%) 50 ml Q30MIN PRN IV Hypoglycemia 01/02/20 18:45 04/01/20 18:44 Divalproex Sodium (Depakote) 500 mg Q12HR ORAL 01/02/20 21:00 02/01/20 20:59 01/08/20 08:09 Levetiracetam (Keppra) 1,000 mg Q12HR ORAL 01/02/20 21:00 02/01/20 20:59 01/08/20 08:09 Methocarbamol (Robaxin) 500 mg TID PRN ORAL back pain 01/03/20 06:45 02/02/20 06:44 01/05/20 15:07 Ondansetron HCl (Zofran) 4 mg Q6H PRN IVP Nausea & Vomiting 01/02/20 18:45 02/01/20 18:44 Polyethylene Glycol (Miralax) 17 gm HSPRN PRN ORAL Constipation 01/02/20 18:45 02/01/20 18:44 Zolpidem Tartrate (Ambien) 5 mg HSPRN PRN ORAL Insomnia 01/02/20 18:45 01/09/20 18:44 Allergies: Coded Allergies: IODINATED CONTRAST MEDIA (Verified Allergy, Severe, 01/02/20) Hives Uncoded Allergies: PENICILLIN (Allergy, Unknown, 01/02/20) ROS Limited/Unobtainable: No Constitutional: Reports: no symptoms HEENT: Reports: no symptoms Cardiovascular: Reports: no symptoms Respiratory: Reports: no symptoms Gastrointestinal/Abdominal: Reports: no symptoms Genitourinary: Reports: no symptoms Neurologic/Psychiatric: Reports: no symptoms Subjective 76 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 Cover for Int an-Dr Magana Objective Last Vital Signs Date Time Temp Pulse Resp B/P (MAP) Pulse Ox O2 Delivery O2 Flow Rate FiO2 01/08/20 09:00 Room Air 01/08/20 08:00 97.7 88 18 106/62 (77) 99 Laboratory Tests Test 01/08/20 05:15 White Blood Count 6.1 K/UL (4.8-10.8) Red Blood Count 3.26 M/UL (4.20-5.40) L Hemoglobin 11.1 G/DL (12.0-16.0) L Hematocrit 35.9 % (37.0-47.0) L Mean Corpuscular Volume 110 FL (80-99) H Mean Corpuscular Hemoglobin 34.1 PG (27.0-31.0) H Mean Corpuscular Hemoglobin Concent 31.0 G/DL (32.0-36.0) L Red Cell Distribution Width 13.5 % (11.6-14.8) Platelet Count 248 K/UL (150-450) Mean Platelet Volume 5.7 FL (6.5-10.1) L Neutrophils (%) (Auto) 57.4 % (45.0-75.0) Lymphocytes (%) (Auto) 30.0 % (20.0-45.0) Monocytes (%) (Auto) 10.5 % (1.0-10.0) H Eosinophils (%) (Auto) 1.1 % (0.0-3.0) Basophils (%) (Auto) 1.1 % (0.0-2.0) Sodium Level 141 MMOL/L (136-145) Potassium Level 4.1 MMOL/L (3.5-5.1) Chloride Level 105 MMOL/L (98-107) Carbon Dioxide Level 30 MMOL/L (21-32) Anion Gap 6 mmol/L (5-15) Blood Urea Nitrogen 16 mg/dL (7-18) Creatinine 0.7 MG/DL (0.55-1.30) Estimat Glomerular Filtration Rate > 60 mL/min (>60) Glucose Level 111 MG/DL (74-106) H Calcium Level 8.9 MG/DL (8.5-10.1) Microbiology Date/Time Source Procedure Growth Status 01/07/20 13:54 Nasopharynx SARS-CoV-2 RdRp Gene Assay - Final Complete Intake and Output 01/07/20 01/08/20 19:00 07:00 Intake Total 480 ml 300 ml Output Total 300 ml 300 ml Balance 180 ml 0 ml Intake Oral 480 ml 300 ml Output Urine Total 300 ml 300 ml # Voids 2 Objective PHYSICAL EXAMINATION: GENERAL: The patient is awake, responsive, no acute distress. HEAD AND NECK: Pupils equal and reactive to light. Extraocular movements intact. Neck was supple. No JVD. LUNGS: Good air entry. No wheezing or rales. HEART: S1, S2. Regular rhythm. No murmur or gallop. ABDOMEN: Soft, nondistended, nontender, positive bowel sounds. EXTREMITIES: No cyanosis, clubbing, or edema. NEUROLOGIC: pneumatic tube repairer II through XII grossly intact. Motor is 5/5 in all extremities. Gait was not assessed due to the patient's status. RECTAL: Refused and deferred. GENITOURINARY: Refused and deferred. Assessment/Plan Assessment/Plan ASSESSMENT: 1. Unsteady gait with recurrent falls. 2. History of DVT, status post IVC filter. 3. Anemia. 4. History of Rosai-Eran brain tumor, status post resection. PLAN: 1. Admit the patient to the medical floor. 2. Dr. Adams = pulmonary consultation. 3. Code status is full code. 4. DVT prophylaxis is heparin subcu. 5. neurology consult=Dr Tran 6. MRI brain=no acute findings [facility]. [facility]. Marky Quinones MD Jan 08, 2020 10:48
[2020-01-08 12:00] VITALS: BP 111/67
--- NOTE | 2020-01-08 12:14 | Pulmonology Progress Note ---
Subjective ROS Limited/Unobtainable: No Constitutional: Reports: no symptoms HEENT: Repors: no symptoms Allergies: Coded Allergies: IODINATED CONTRAST MEDIA (Verified Allergy, Severe, 01/02/20) Hives Uncoded Allergies: PENICILLIN (Allergy, Unknown, 01/02/20) All Systems: reviewed and negative except above Objective Last 24 Hour Vital Signs Date Time Temp Pulse Resp B/P (MAP) Pulse Ox O2 Delivery O2 Flow Rate FiO2 01/08/20 09:00 Room Air 01/08/20 08:00 97.7 88 18 106/62 (77) 99 01/08/20 04:00 98.0 89 18 133/66 (88) 99 01/08/20 00:00 97.7 87 18 135/66 (89) 99 01/07/20 21:00 Room Air 01/07/20 20:00 97.8 90 18 120/67 (84) 96 01/07/20 16:00 97.6 76 18 136/90 (105) 99 Intake and Output 01/07/20 01/08/20 19:00 07:00 Intake Total 480 ml 300 ml Output Total 300 ml 300 ml Balance 180 ml 0 ml Intake Oral 480 ml 300 ml Output Urine Total 300 ml 300 ml # Voids 2 General Appearance: WD/WN, no acute distress HEENT: normocephalic, atraumatic, anicteric, mucous membranes moist Respiratory: lungs clear, no respiratory distress, no accessory muscle use Cardiovascular: normal peripheral pulses, normal rate Abdomen: normal bowel sounds, soft, non tender Genitourinary: normal external genitalia Extremities: no edema Neurologic: abnormal gait - unsteady gait , alert, oriented x 3, responsive Musculoskeletal: normal muscle bulk Microbiology Date/Time Source Procedure Growth Status 01/07/20 13:54 Nasopharynx SARS-CoV-2 RdRp Gene Assay - Final Complete Laboratory Tests 01/08/20 05:15: White Blood Count 6.1, Red Blood Count 3.26L, Hemoglobin 11.1L, Hematocrit 35.9L , Mean Corpuscular Volume 110H, Mean Corpuscular Hemoglobin 34.1H, Mean Corpuscular Hemoglobin Concent 31.0L, Red Cell Distribution Width 13.5, Platelet Count 248, Mean Platelet Volume 5.7L, Neutrophils (%) (Auto) 57.4, Lymphocytes (%) (Auto) 30.0, Monocytes (%) (Auto) 10.5H, Eosinophils (%) (Auto) 1.1, Basophils (%) (Auto) 1.1, Sodium Level 141, Potassium Level 4.1, Chloride Level 105, Carbon Dioxide Level 30, Anion Gap 6, Blood Urea Nitrogen 16, Creatinine 0.7, Estimat Glomerular Filtration Rate > 60, Glucose Level 111H, Calcium Level 8.9 Current Medications Medications (Trade) Dose Ordered Sig/Stone Route PRN Reason Start Time Stop Time Status Last Admin Dose Admin Acetaminophen (Tylenol) 650 mg Q4H PRN ORAL Temp >100.5 01/02/20 18:45 02/01/20 18:44 Acetaminophen/ Hydrocodone Bitart ([place] 5/325) 1 tab Q6H PRN ORAL For Pain 01/03/20 14:15 01/10/20 14:14 01/08/20 06:29 Bisacodyl (Dulcolax) 10 mg DAILYPRN PRN RECTAL Constipation 01/07/20 15:00 04/06/20 14:59 01/07/20 14:56 Dextrose (Dextrose 50%) 25 ml Q30MIN PRN IV Hypoglycemia 01/02/20 18:45 04/01/20 18:44 Dextrose (Dextrose 50%) 50 ml Q30MIN PRN IV Hypoglycemia 01/02/20 18:45 04/01/20 18:44 Divalproex Sodium (Depakote) 500 mg Q12HR ORAL 01/02/20 21:00 02/01/20 20:59 01/08/20 08:09 Levetiracetam (Keppra) 1,000 mg Q12HR ORAL 01/02/20 21:00 02/01/20 20:59 01/08/20 08:09 Methocarbamol (Robaxin) 500 mg TID PRN ORAL back pain 01/03/20 06:45 02/02/20 06:44 01/05/20 15:07 Ondansetron HCl (Zofran) 4 mg Q6H PRN IVP Nausea & Vomiting 01/02/20 18:45 02/01/20 18:44 Polyethylene Glycol (Miralax) 17 gm HSPRN PRN ORAL Constipation 01/02/20 18:45 02/01/20 18:44 Zolpidem Tartrate (Ambien) 5 mg HSPRN PRN ORAL Insomnia 01/02/20 18:45 01/09/20 18:44 Assessment/Plan Problems: (1) Frequent falls (2) Neuropathy of left lower extremity (3) Seizure disorder (4) Brain tumor Assessment/Plan all reviewed no new complains doing better PT eval and Rx seizure precautions, continue Keppra and Depakote infrarenal IVC filter in place ; 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
--- NOTE | 2020-01-08 13:32 | Cardiac Electrophysiology PN ---
Assessment/Plan Assessment/Plan 1. Status post recurrent falls x3 in the patient with history of brain tumor. A CT of the brain showed postsurgical changes with bilateral pressure craniectomy with no evidence for intracranial hemorrhage or mass effect or midline shift. Echocardiogram Nl EF and no . First troponin negative. S/P MRI brain 2. History of DVT status post IVC filter. 3. History of Rosai-Eran brain tumor status post resection. 4. Anemia. DC to CRI pending Subjective Subjective Had [facility] [place] [facility] Objective Last 24 Hour Vital Signs Date Time Temp Pulse Resp B/P (MAP) Pulse Ox O2 Delivery O2 Flow Rate FiO2 01/08/20 12:00 97.9 81 17 111/67 (82) 98 01/08/20 09:00 Room Air 01/08/20 08:00 97.7 88 18 106/62 (77) 99 01/08/20 04:00 98.0 89 18 133/66 (88) 99 01/08/20 00:00 97.7 87 18 135/66 (89) 99 01/07/20 21:00 Room Air 01/07/20 20:00 97.8 90 18 120/67 (84) 96 01/07/20 16:00 97.6 76 18 136/90 (105) 99 Intake and Output 01/07/20 01/08/20 19:00 07:00 Intake Total 480 ml 300 ml Output Total 300 ml 300 ml Balance 180 ml 0 ml Intake Oral 480 ml 300 ml Output Urine Total 300 ml 300 ml # Voids 2 Laboratory Tests Test 01/08/20 05:15 White Blood Count 6.1 K/UL (4.8-10.8) Red Blood Count 3.26 M/UL (4.20-5.40) L Hemoglobin 11.1 G/DL (12.0-16.0) L Hematocrit 35.9 % (37.0-47.0) L Mean Corpuscular Volume 110 FL (80-99) H Mean Corpuscular Hemoglobin 34.1 PG (27.0-31.0) H Mean Corpuscular Hemoglobin Concent 31.0 G/DL (32.0-36.0) L Red Cell Distribution Width 13.5 % (11.6-14.8) Platelet Count 248 K/UL (150-450) Mean Platelet Volume 5.7 FL (6.5-10.1) L Neutrophils (%) (Auto) 57.4 % (45.0-75.0) Lymphocytes (%) (Auto) 30.0 % (20.0-45.0) Monocytes (%) (Auto) 10.5 % (1.0-10.0) H Eosinophils (%) (Auto) 1.1 % (0.0-3.0) Basophils (%) (Auto) 1.1 % (0.0-2.0) Sodium Level 141 MMOL/L (136-145) Potassium Level 4.1 MMOL/L (3.5-5.1) Chloride Level 105 MMOL/L (98-107) Carbon Dioxide Level 30 MMOL/L (21-32) Anion Gap 6 mmol/L (5-15) Blood Urea Nitrogen 16 mg/dL (7-18) Creatinine 0.7 MG/DL (0.55-1.30) Estimat Glomerular Filtration Rate > 60 mL/min (>60) Glucose Level 111 MG/DL (74-106) H Calcium Level 8.9 MG/DL (8.5-10.1) Microbiology Date/Time Source Procedure Growth Status 01/07/20 13:54 Nasopharynx SARS-CoV-2 RdRp Gene Assay - Final Complete Objective HEAD AND NECK: Showed no JVD. LUNGS: Clear. CARDIOVASCULAR: Shows regular S1 and S2 with no gallop or murmur. ABDOMEN: Soft. EXTREMITIES: No pitting edema. Samson Torrez MD Jan 08, 2020 13:32
[2020-01-08 16:00] VITALS: BP 136/77
[2020-01-08] MEDS ORDERED: Zolpidem 5mg tab ORAL PRN (16:45)
[2020-01-08 20:00] VITALS: BP 124/70
[2020-01-09] VITALS: BP 146/68
[2020-01-09] MEDS: HYDROcodone/Acetamin 5/325 tab ORAL PRN ×3 (00:51→14:20)
[2020-01-09 03:57] VITALS: BP 137/61
[2020-01-09 06:23] LABS: BASOPHILS % (AUTO) 1.4 % (0.0-2.0); EOSINOPHILS % (AUTO) 0.9 % (0.0-3.0); HEMATOCRIT 35.5 % (37.0-47.0); LYMPHOCYTES % (AUTO) 27.5 % (20.0-45.0); MEAN CORPUSCULAR VOLUME 109 FL (80-99); MONOCYTES % (AUTO) 8.9 % (1.0-10.0); NEUTROPHILS % (AUTO) 61.3 % (45.0-75.0); PLATELET COUNT 223 K/UL (150-450); RED BLOOD COUNT 3.25 M/UL (4.20-5.40); RED CELL DISTRIBUTION WIDTH 13.1 % (11.6-14.8); WHITE BLOOD COUNT 6.3 K/UL (4.8-10.8)
[2020-01-09 06:36] LABS: BLOOD UREA NITROGEN 16 mg/dL (7-18); CALCIUM 9.2 MG/DL (8.5-10.1); CARBON DIOXIDE 32 MMOL/L (21-32); CHLORIDE 105 MMOL/L (98-107); CREATININE 0.8 MG/DL (0.55-1.30); POTASSIUM 4.4 MMOL/L (3.5-5.1); SODIUM 140 MMOL/L (136-145)
[2020-01-09 08:00] VITALS: BP 133/71
[2020-01-09] MEDS: Depakote 500mg tab ORAL SCH (08:04)
--- NOTE | 2020-01-09 10:48 | Cardiac Electrophysiology PN ---
Assessment/Plan Assessment/Plan 1. Status post recurrent falls x3 in the patient with history of brain tumor. A CT of the brain showed postsurgical changes with bilateral pressure craniectomy with no evidence for intracranial hemorrhage or mass effect or midline shift. Echocardiogram Nl EF and no . First troponin negative. S/P MRI brain 2. History of DVT status post IVC filter. 3. History of Rosai-Eran brain tumor status post resection. 4. Anemia. DC to CRI pending Subjective Subjective No CP or SOB. [facility] [place] [facility] pending Objective Last 24 Hour Vital Signs Date Time Temp Pulse Resp B/P (MAP) Pulse Ox O2 Delivery O2 Flow Rate FiO2 01/09/20 08:00 Room Air 01/09/20 08:00 97.2 83 18 133/71 (91) 98 01/09/20 03:57 97.3 82 16 137/61 (86) 98 01/09/20 00:00 97.9 78 16 146/68 (94) 100 01/08/20 21:00 Room Air 01/08/20 20:00 97.5 79 17 124/70 (88) 99 01/08/20 17:19 97.5 01/08/20 16:00 97.5 87 18 136/77 (96) 99 01/08/20 12:00 97.9 81 17 111/67 (82) 98 Intake and Output 01/08/20 01/09/20 19:00 07:00 Intake Total 300 ml 450 ml Output Total 400 ml Balance 300 ml 50 ml Intake Oral 300 ml 450 ml Output Urine Total 400 ml # Voids 2 Laboratory Tests Test 01/09/20 05:20 White Blood Count 6.3 K/UL (4.8-10.8) Red Blood Count 3.25 M/UL (4.20-5.40) L Hemoglobin 11.0 G/DL (12.0-16.0) L Hematocrit 35.5 % (37.0-47.0) L Mean Corpuscular Volume 109 FL (80-99) H Mean Corpuscular Hemoglobin 33.8 PG (27.0-31.0) H Mean Corpuscular Hemoglobin Concent 30.9 G/DL (32.0-36.0) L Red Cell Distribution Width 13.1 % (11.6-14.8) Platelet Count 223 K/UL (150-450) Mean Platelet Volume 5.8 FL (6.5-10.1) L Neutrophils (%) (Auto) 61.3 % (45.0-75.0) Lymphocytes (%) (Auto) 27.5 % (20.0-45.0) Monocytes (%) (Auto) 8.9 % (1.0-10.0) Eosinophils (%) (Auto) 0.9 % (0.0-3.0) Basophils (%) (Auto) 1.4 % (0.0-2.0) Sodium Level 140 MMOL/L (136-145) Potassium Level 4.4 MMOL/L (3.5-5.1) Chloride Level 105 MMOL/L (98-107) Carbon Dioxide Level 32 MMOL/L (21-32) Blood Urea Nitrogen 16 mg/dL (7-18) Creatinine 0.8 MG/DL (0.55-1.30) Estimat Glomerular Filtration Rate > 60 mL/min (>60) Glucose Level 93 MG/DL (74-106) Calcium Level 9.2 MG/DL (8.5-10.1) Microbiology Date/Time Source Procedure Growth Status 01/07/20 13:54 Nasopharynx SARS-CoV-2 RdRp Gene Assay - Final Complete Objective HEAD AND NECK: Showed no JVD. LUNGS: Clear. CARDIOVASCULAR: Shows regular S1 and S2 with no gallop or murmur. ABDOMEN: Soft. EXTREMITIES: No pitting edema. Samson Torrez MD Jan 09, 2020 10:48
[2020-01-09 12:00] VITALS: BP 128/56
--- NOTE | 2020-01-09 12:01 | Pulmonology Progress Note ---
Subjective ROS Limited/Unobtainable: No Constitutional: Reports: no symptoms HEENT: Repors: no symptoms Allergies: Coded Allergies: IODINATED CONTRAST MEDIA (Verified Allergy, Severe, 01/02/20) Hives Uncoded Allergies: PENICILLIN (Allergy, Unknown, 01/02/20) All Systems: reviewed and negative except above Objective Last 24 Hour Vital Signs Date Time Temp Pulse Resp B/P (MAP) Pulse Ox O2 Delivery O2 Flow Rate FiO2 01/09/20 08:00 Room Air 01/09/20 08:00 97.2 83 18 133/71 (91) 98 01/09/20 03:57 97.3 82 16 137/61 (86) 98 01/09/20 00:00 97.9 78 16 146/68 (94) 100 01/08/20 21:00 Room Air 01/08/20 20:00 97.5 79 17 124/70 (88) 99 01/08/20 17:19 97.5 01/08/20 16:00 97.5 87 18 136/77 (96) 99 Intake and Output 01/08/20 01/09/20 19:00 07:00 Intake Total 300 ml 450 ml Output Total 400 ml Balance 300 ml 50 ml Intake Oral 300 ml 450 ml Output Urine Total 400 ml # Voids 2 General Appearance: WD/WN, no acute distress HEENT: normocephalic, atraumatic, anicteric, mucous membranes moist Respiratory: lungs clear, no respiratory distress, no accessory muscle use Cardiovascular: normal peripheral pulses, normal rate Abdomen: normal bowel sounds, soft, non tender Genitourinary: normal external genitalia Extremities: no edema Neurologic: abnormal gait - unsteady gait , alert, oriented x 3, responsive Musculoskeletal: normal muscle bulk Microbiology Date/Time Source Procedure Growth Status 01/07/20 13:54 Nasopharynx SARS-CoV-2 RdRp Gene Assay - Final Complete Laboratory Tests 01/09/20 05:20: White Blood Count 6.3, Red Blood Count 3.25L, Hemoglobin 11.0L, Hematocrit 35.5L , Mean Corpuscular Volume 109H, Mean Corpuscular Hemoglobin 33.8H, Mean Corpuscular Hemoglobin Concent 30.9L, Red Cell Distribution Width 13.1, Platelet Count 223, Mean Platelet Volume 5.8L, Neutrophils (%) (Auto) 61.3, Lymphocytes (%) (Auto) 27.5, Monocytes (%) (Auto) 8.9, Eosinophils (%) (Auto) 0.9, Basophils (%) (Auto) 1.4, Sodium Level 140, Potassium Level 4.4, Chloride Level 105, Carbon Dioxide Level 32, Blood Urea Nitrogen 16, Creatinine 0.8, Estimat Glomerular Filtration Rate > 60, Glucose Level 93, Calcium Level 9.2 Current Medications Medications (Trade) Dose Ordered Sig/Stone Route PRN Reason Start Time Stop Time Status Last Admin Dose Admin Acetaminophen (Tylenol) 650 mg Q4H PRN ORAL Temp >100.5 01/02/20 18:45 02/01/20 18:44 Acetaminophen/ Hydrocodone Bitart ([place] 5/325) 1 tab Q6H PRN ORAL For Pain 01/03/20 14:15 01/10/20 14:14 01/09/20 08:10 Bisacodyl (Dulcolax) 10 mg DAILYPRN PRN RECTAL Constipation 01/07/20 15:00 04/06/20 14:59 01/07/20 14:56 Dextrose (Dextrose 50%) 25 ml Q30MIN PRN IV Hypoglycemia 01/02/20 18:45 04/01/20 18:44 Dextrose (Dextrose 50%) 50 ml Q30MIN PRN IV Hypoglycemia 01/02/20 18:45 04/01/20 18:44 Divalproex Sodium (Depakote) 500 mg Q12HR ORAL 01/02/20 21:00 02/01/20 20:59 01/09/20 08:04 Levetiracetam (Keppra) 1,000 mg Q12HR ORAL 01/02/20 21:00 02/01/20 20:59 01/09/20 08:04 Methocarbamol (Robaxin) 500 mg TID PRN ORAL back pain 01/03/20 06:45 02/02/20 06:44 01/05/20 15:07 Ondansetron HCl (Zofran) 4 mg Q6H PRN IVP Nausea & Vomiting 01/02/20 18:45 02/01/20 18:44 Polyethylene Glycol (Miralax) 17 gm HSPRN PRN ORAL Constipation 01/02/20 18:45 02/01/20 18:44 Zolpidem Tartrate (Ambien) 5 mg HSPRN PRN ORAL Insomnia 01/08/20 16:45 01/15/20 16:44 Assessment/Plan Problems: (1) Frequent falls (2) Neuropathy of left lower extremity (3) Seizure disorder (4) Brain tumor Assessment/Plan all reviewed no new complains doing better seizure precautions, continue Keppra and Depakote infrarenal IVC filter in place ; moderate degenerative disc disease with facet arthrosis; check inflammatory markers dc planning for today to rehab for today, the bed is available. Donnell Adams MD Jan 09, 2020 12:01
--- NOTE | 2020-01-09 13:54 | Internal Med Progress Note ---
Subjective Date of Service: Jan 09, 2020 Physician Name Marky Quinones Attending Physician Hector Magana MD Current Medications Medications (Trade) Dose Ordered Sig/Stone Route PRN Reason Start Time Stop Time Status Last Admin Dose Admin Acetaminophen (Tylenol) 650 mg Q4H PRN ORAL Temp >100.5 01/02/20 18:45 02/01/20 18:44 Acetaminophen/ Hydrocodone Bitart (Taylor 5/325) 1 tab Q6H PRN ORAL For Pain 01/03/20 14:15 01/10/20 14:14 01/09/20 08:10 Bisacodyl (Dulcolax) 10 mg DAILYPRN PRN RECTAL Constipation 01/07/20 15:00 04/06/20 14:59 01/07/20 14:56 Dextrose (Dextrose 50%) 25 ml Q30MIN PRN IV Hypoglycemia 01/02/20 18:45 04/01/20 18:44 Dextrose (Dextrose 50%) 50 ml Q30MIN PRN IV Hypoglycemia 01/02/20 18:45 04/01/20 18:44 Divalproex Sodium (Depakote) 500 mg Q12HR ORAL 01/02/20 21:00 02/01/20 20:59 01/09/20 08:04 Levetiracetam (Keppra) 1,000 mg Q12HR ORAL 01/02/20 21:00 02/01/20 20:59 01/09/20 08:04 Methocarbamol (Robaxin) 500 mg TID PRN ORAL back pain 01/03/20 06:45 02/02/20 06:44 01/05/20 15:07 Ondansetron HCl (Zofran) 4 mg Q6H PRN IVP Nausea & Vomiting 01/02/20 18:45 02/01/20 18:44 Polyethylene Glycol (Miralax) 17 gm HSPRN PRN ORAL Constipation 01/02/20 18:45 02/01/20 18:44 Zolpidem Tartrate (Ambien) 5 mg HSPRN PRN ORAL Insomnia 01/08/20 16:45 01/15/20 16:44 Allergies: Coded Allergies: IODINATED CONTRAST MEDIA (Verified Allergy, Severe, 01/02/20) Hives Uncoded Allergies: PENICILLIN (Allergy, Unknown, 01/02/20) ROS Limited/Unobtainable: No Constitutional: Reports: no symptoms HEENT: Reports: no symptoms Cardiovascular: Reports: no symptoms Respiratory: Reports: no symptoms Gastrointestinal/Abdominal: Reports: no symptoms Genitourinary: Reports: no symptoms Neurologic/Psychiatric: Reports: no symptoms Subjective 76 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 Cover for Int [facility]-Dr Magana. Await transfer to [facility] Objective Last Vital Signs Date Time Temp Pulse Resp B/P (MAP) Pulse Ox O2 Delivery O2 Flow Rate FiO2 01/09/20 12:00 96.8 83 17 128/56 (80) 98 01/09/20 08:00 Room Air Laboratory Tests Test 01/09/20 05:20 White Blood Count 6.3 K/UL (4.8-10.8) Red Blood Count 3.25 M/UL (4.20-5.40) L Hemoglobin 11.0 G/DL (12.0-16.0) L Hematocrit 35.5 % (37.0-47.0) L Mean Corpuscular Volume 109 FL (80-99) H Mean Corpuscular Hemoglobin 33.8 PG (27.0-31.0) H Mean Corpuscular Hemoglobin Concent 30.9 G/DL (32.0-36.0) L Red Cell Distribution Width 13.1 % (11.6-14.8) Platelet Count 223 K/UL (150-450) Mean Platelet Volume 5.8 FL (6.5-10.1) L Neutrophils (%) (Auto) 61.3 % (45.0-75.0) Lymphocytes (%) (Auto) 27.5 % (20.0-45.0) Monocytes (%) (Auto) 8.9 % (1.0-10.0) Eosinophils (%) (Auto) 0.9 % (0.0-3.0) Basophils (%) (Auto) 1.4 % (0.0-2.0) Sodium Level 140 MMOL/L (136-145) Potassium Level 4.4 MMOL/L (3.5-5.1) Chloride Level 105 MMOL/L (98-107) Carbon Dioxide Level 32 MMOL/L (21-32) Blood Urea Nitrogen 16 mg/dL (7-18) Creatinine 0.8 MG/DL (0.55-1.30) Estimat Glomerular Filtration Rate > 60 mL/min (>60) Glucose Level 93 MG/DL (74-106) Calcium Level 9.2 MG/DL (8.5-10.1) Microbiology Date/Time Source Procedure Growth Status 01/07/20 13:54 Nasopharynx SARS-CoV-2 RdRp Gene Assay - Final Complete Intake and Output 01/08/20 01/09/20 19:00 07:00 Intake Total 300 ml 450 ml Output Total 400 ml Balance 300 ml 50 ml Intake Oral 300 ml 450 ml Output Urine Total 400 ml # Voids 2 Objective PHYSICAL EXAMINATION: GENERAL: The patient is awake, responsive, no acute distress. HEAD AND NECK: Pupils equal and reactive to light. Extraocular movements intact. Neck was supple. No JVD. LUNGS: Good air entry. No wheezing or rales. HEART: S1, S2. Regular rhythm. No murmur or gallop. ABDOMEN: Soft, nondistended, nontender, positive bowel sounds. EXTREMITIES: No cyanosis, clubbing, or edema. NEUROLOGIC: cutting machine tender II through XII grossly intact. Motor is 5/5 in all extremities. Gait was not assessed due to the patient's status. RECTAL: Refused and deferred. GENITOURINARY: Refused and deferred. Assessment/Plan Assessment/Plan ASSESSMENT: 1. Unsteady gait with recurrent falls. 2. History of DVT, status post IVC filter. 3. Anemia. 4. History of Rosai-Eran brain tumor, status post resection. PLAN: 1. Admit the patient to the medical floor. 2. Dr. Adams = pulmonary consultation. 3. Code status is full code. 4. DVT prophylaxis is heparin subcu. 5. neurology consult=Dr Tran 6. MRI brain=no acute findings [facility]. [facility]. Marky Quinones MD Jan 09, 2020 13:54
--- NOTE | 2020-01-09 13:57 | Neurology Progress Note ---
Interim History Interim History ROS Limited/Unobtainable: No Complaints: none Events: no complains Interim History pending aru bed Objective Physical Exam Last Vital Signs Date Time Temp Pulse Resp B/P (MAP) Pulse Ox O2 Delivery O2 Flow Rate FiO2 01/09/20 12:00 96.8 83 17 128/56 (80) 98 01/09/20 08:00 Room Air Laboratory Tests Test 01/09/20 05:20 White Blood Count 6.3 K/UL (4.8-10.8) Red Blood Count 3.25 M/UL (4.20-5.40) L Hemoglobin 11.0 G/DL (12.0-16.0) L Hematocrit 35.5 % (37.0-47.0) L Mean Corpuscular Volume 109 FL (80-99) H Mean Corpuscular Hemoglobin 33.8 PG (27.0-31.0) H Mean Corpuscular Hemoglobin Concent 30.9 G/DL (32.0-36.0) L Red Cell Distribution Width 13.1 % (11.6-14.8) Platelet Count 223 K/UL (150-450) Mean Platelet Volume 5.8 FL (6.5-10.1) L Neutrophils (%) (Auto) 61.3 % (45.0-75.0) Lymphocytes (%) (Auto) 27.5 % (20.0-45.0) Monocytes (%) (Auto) 8.9 % (1.0-10.0) Eosinophils (%) (Auto) 0.9 % (0.0-3.0) Basophils (%) (Auto) 1.4 % (0.0-2.0) Sodium Level 140 MMOL/L (136-145) Potassium Level 4.4 MMOL/L (3.5-5.1) Chloride Level 105 MMOL/L (98-107) Carbon Dioxide Level 32 MMOL/L (21-32) Blood Urea Nitrogen 16 mg/dL (7-18) Creatinine 0.8 MG/DL (0.55-1.30) Estimat Glomerular Filtration Rate > 60 mL/min (>60) Glucose Level 93 MG/DL (74-106) Calcium Level 9.2 MG/DL (8.5-10.1) Neurologic Exam Mental Status: awake, alert Objective ao x 2 bradykinetic but symmetric mild rigidity broad base Impression/Recommendations Problems: (1) Aortitis (2) Seizure disorder (3) Fall (4) Brain tumor Diagnostic Impression Diagnosis Generalized weakness Gait instability Falls frequently Rosai-Eran disease (HCC) Seizure disorder (HCC) 1. Frequent falls since December 2018 with rigidity and tremors - likely parkinsonism. - OT/PT 2. history brain tumor status post resection and chemotherapy, radiation therapy 3. Seizure disorder, secondary to above Plan: Cont AEDs for now PT OT ARU candidate Sohail Tran MD Jan 09, 2020 13:57
--- NOTE | 2020-01-13 11:50 | Discharge Summary ---
Discharge Summary Discharge Summary _ DATE OF ADMISSION: 01/02/2020 DATE OF DISCHARGE: 01/09/2020 DISCHARGED BY: Dr. Magana REASON FOR ADMISSION: 69 years old female with past medical history of lower back pain, benign brain mass , status post resection in 2002, due to Rosai -Eran lesion, presented to emergency department complaining of recurrent falls and unsteady gait. Patient reported difficulty with balance She had 3 episodes of fall last night. Patient did not remember striking her head, but felt that her balance was off. She reported generalized weakness. She denied any numbness or tingling. She denied double vision. She denied bowel or urine incontinence. Patient was not on any blood thinner. No fever or chills. No nausea , vomiting or diarrhea. Patient reported being well-hydrated. Shortly after initial evaluation in emergency department, patient was admitted to the hospital with recurrent falls and unsteady gait. CONSULTANTS: mutuel teller Dr. Guevara critical care Dr. Adams neurologist Dr. Tran [facility]: Patient admitted to medical surgical floor. Neurologist seen and evaluated patient. CT of the head revealed no evidence of acute intracranial hemorrhage. No mass- effect or midline shift. CT of the lumbar spine revealed no evidence of lumbar spine fracture or subluxation ; moderate degenerative disc space loss at L5-S1. Facet arthrosis , most prominent on the left at L3-L4 and bilaterally at L4-L5 and L5-S1. Infrarenal IVC filter in place. Hazy para-aortic inflammatory stranding adjacent to the distal abdominal aorta and aortic bifurcation, nonspecific, concerning for aortitis or vascular injury. No adjacent fluid collection. MRI of the brain revealed evidence of prior surgery with craniectomy defect, but no evidence of acute intracranial bleeding, edema, infarct or mass-effect. Carotid duplex was essentially unremarkable. Echocardiogram demonstrated preserved ejection fraction 65%. No evidence of wall motion abnormalities. EEG revealed bilateral frontotemporal dysfunction and right hemispheric dysfunction. Seizure disorder due to history of brain tumor . Seizure precautions maintained. Antiepileptic regimen continued. No evidence of seizure activity while in the hospital. Fall precautions maintained. Patient was working with physical therapist. DVT prophylaxis provided. Hemoglobin and hematocrit were closely monitored with goal to keep hemoglobin above 7 , remained at baseline; prior to discharge hemoglobin 11, hematocrit 35.5. Patient was a good candidate for acute rehabilitation. Transfer was arranged to [facility] . Patient was stable for transfer. 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 DISCHARGE INSTRUCTIONS: Patient was discharged to [facility] for further rehabilitation. I have been assigned to dictate discharge summary for this account. Caty Dozier NP Jan 13, 2020 11:50
== END 2020-01-09 15:55 | DRG 57 ==
LOC: EDBD 12:56 → EMR 13:10 → 4E 15:15 → EDBEDREQ 17:39 → 4E 18:19
DX: G20 Parkinson's disease (principal); I77.6 Arteritis, unspecified; G57.92 Unspecified mononeuropathy of left lower limb; Z86.011 Personal history of benign neoplasm of the brain; G40.909 Epilepsy, unspecified, not intractable, without status epilepticus; D64.9 Anemia, unspecified; Z88.0 Allergy status to penicillin; Z86.718 Personal history of other venous thrombosis and embolism; Z95.828 Presence of other vascular implants and grafts; Z92.3 Personal history of irradiation; R29.6 Repeated falls; Z91.041 Radiographic dye allergy status; M51.36 Other intervertebral disc degeneration, lumbar region; M47.816 Spondylosis without myelopathy or radiculopathy, lumbar region
CPT/HCPCS: 36415; 70450; 70553; 72131; 80048; 80053; 80061; 81003; 83735; 84100; 84443; 84484; 85025; 86140; 93005; 93306; 93880; 95819; 96360; 99285; A9585; J7030; U0002